=== PATIENT | female | born 1945 | race Caucasian/White ===

== ENCOUNTER 2017-02-28 16:06 | Observation (INO) ==
[2017-02-28] MEDS ORDERED: Aspirin 81 MG TAB.CHEW PO ONE (17:34)
--- NOTE | 2017-02-28 17:45 | Emergency Department Note ---
Disposition Clinical Impression: Exertional dyspnea, Weakness generalized CAD (coronary artery disease) Qualifiers: Coronary Disease-Associated Artery/Lesion type: [place] artery [place] vs. transplanted heart: [place] heart Associated angina: without angina Qualified Code(s): I25.10 - Atherosclerotic heart disease of [place] coronary artery without angina pectoris Hyperlipidemia Qualifiers: Hyperlipidemia type: unspecified Qualified Code(s): E78.5 - Hyperlipidemia, unspecified Disposition: Admitted As Inpatient SOB HPI - General Chief Complaint: ED Shortness of Breath/Dyspnea Stated Complaint: weak, SOB Source: patient, family Mode of arrival: wheelchair Limitations: no limitations Nursing Notes Reviewed: Yes Vital Signs Reviewed: Yes - History of Present Illness Patient is a 71-year-old white female with a history of reported asthma, diabetes, coronary artery disease, hypertension, hyperlipidemia chronic lower leg pain who presents to the emergency department brought by her daughter, with whom she resides, for complaints of gradually worsening dyspnea with exertion. Quite to the daughter she was brought into the emergency department for shortness of breath about a month ago. They felt she was having an exacerbation of her asthma at that time did breathing treatments and steroids and patient was discharged home with similar medications. Daughter feels that these just did not help with her symptoms and she is continued to have noticeable shortness of breath with any activity. Both patient and daughter state if she is at rest she is fine and she does not have any shortness of breath she is not coughing she has no fever chills no upper respiratory congestion or sore throat. Daughter reports that she has been evaluated in the past with stress testing that was normal but states it was remote and cannot remember the date and that it was done at [place]. Patient denies any chest pain, and no chest heaviness or pressure sensation when she gets short of breath. Patient's denies any abdominal pain no nausea vomiting, no diaphoresis. Patient's resting comfortably at bedside, with stable vitals pulse ox is 100% on room air and patient has no signs of respiratory distress. Patient also states that she is worried she may have a urinary tract infection and as of recent has started to use depends for occasional urinary incontinence. She denies any actual dysuria or polyuria and has not seen any blood in her urine. Patient denies any back pain or flank pain. - Related Data Home Medications Medication Instructions Recorded Confirmed Aspirin [Adult Low Dose Aspirin EC] 81 mg PO DAILY 10/12/15 02/28/17 Citalopram [CeleXA] 40 mg PO DAILY 10/12/15 02/28/17 LORazepam [Ativan] 1 mg PO QAM 10/12/15 02/28/17 Simvastatin [Zocor] 10 mg PO HS 10/12/15 02/28/17 Sitagliptin Phos/Metformin HCl 1 tab PO BID 10/12/15 02/28/17 [Janumet 50-500 mg Tablet] Albuterol Sulfate [Proair Hfa] 2 puff IH Q4H PRN 02/28/17 02/28/17 BuPROPion XL (24 HR) [Wellbutrin 150 mg PO DAILY 02/28/17 02/28/17 XL] Carbidopa/Levodopa [Sinemet 1 each PO BID 02/28/17 02/28/17] Donepezil [Aricept] 10 mg PO HS 02/28/17 02/28/17 Ferrous Sulfate 325 mg PO BIDWM 02/28/17 02/28/17 Fluticasone Propionate [Flovent 2 puff IH BID 02/28/17 02/28/17 Hfa] LORazepam [Ativan] 2 mg PO HS 02/28/17 02/28/17 Omeprazole [PriLOSEC] 40 mg PO DAILY 02/28/17 02/28/17 Allergies Allergy/AdvReac Type Severity Reaction Status Date / Time codeine Allergy Anaphylaxis Verified 02/28/17 16:12 Sulfa (Sulfonamide Allergy Hives Verified 02/28/17 16:12 Antibiotics) All systems ED: reviewed and negative except as stated. Constitutional: Reports: as per HPI, weakness. Denies: fever, chills Eyes: Reports: as per HPI ENT ED: Reports: as per HPI. Denies: congestion, dysphagia Cardiovascular: Reports: as per HPI, dyspnea on exertion. Denies: chest pain, palpitations, orthopnea, edema, syncope, paroxysmal nocturnal dyspnea Respiratory: Reports: as per HPI. Denies: cough, dyspnea, wheezes, sputum production Gastrointestinal: Reports: as per HPI. Denies: abdominal pain, nausea, vomiting , diarrhea Genitourinary: Reports: as per HPI. Denies: urgency, dysuria, frequency, hematuria Musculoskeletal: Reports: as per HPI, other (Patient complains of an exacerbation of chronic pain in the right lower extremity that is in the distribution of a large varicose vein that traverses from her medial right thigh around the medial aspect of the knee and diagonally across the lower leg.) . Denies: back pain, neck pain, myalgia Integumentary: Reports: as per HPI. Denies: rash Neurological: Reports: as per HPI. Denies: headache, weakness, numbness, paresthesias Psychiatric: Reports: as per HPI. Denies: anxiety, depression Endocrine: Reports: as per HPI. Denies: fatigue Hematological/Lymphatic: Reports: as per HPI Allergic/Immunologic: Reports: as per HPI Past Medical History - Past Medical History Medical history: Reports: asthma, coronary artery disease, diabetes, hyperlipidemia, hypertension, other Surgical history: Reports: angioplasty/stent, cataract, hysterectomy Psychiatric history: Reports: anxiety, depression [employer] history: Reports: other - Social History Smoking Status: Never smoker Smokeless Tobacco Status: No Alcohol use: Reports: none Drug use: Reports: none Physical Exam - General Limitations: no limitations General appearance: alert, in no apparent distress - Head Head exam: atraumatic, normocephalic, normal inspection - Eye Eye exam: Present: normal appearance, PERRL, EOMI - ENT ENT exam: normal exam, normal oropharynx, mucous membranes moist - Neck Neck exam: Present: normal inspection, full ROM - Chest Chest inspection: Present: normal inspection, symmetric chest wall rise. Absent : tenderness - Respiratory Respiratory exam: Present: normal lung sounds bilaterally. Absent: respiratory distress, wheezes - Cardiovascular Cardiovascular exam: Present: regular rate, normal rhythm, normal heart sounds - Abdominal Exam Abdominal exam: Present: soft, Non-Tender, normal bowel sounds. Absent: distention, guarding, rebound, rigidity - Rectal Exam Rectal exam: Present: deferred - Extremities Exam Extremities exam: Present: normal inspection, tenderness, normal capillary refill, other (Patient with tenderness to palpation along the distribution of a large varicose vein on her right lower extremity remainder of the leg, both joints and muscles are nontender with no edema). Absent: pedal edema - Back Exam Back exam: Present: normal inspection. Absent: CVA tenderness (R), CVA tenderness (L) - Neurological Exam Neurological exam: Present: alert, oriented X3, CN II-XII intact, reflexes normal. Absent: motor sensory deficit - Psychiatric Psychiatric exam: Present: normal affect, normal mood - Skin Skin exam: Present: warm, dry. Absent: rash, diaphoresis, pallor Course Vital Signs Temperature 98.1 F 02/28/17 16:08 Pulse Rate 78 02/28/17 16:08 Respiratory Rate 18 02/28/17 16:08 Blood Pressure 144/84 02/28/17 16:08 O2 Sat by Pulse Oximetry 98 02/28/17 16:08 Temperature 97.8 F 03/01/17 16:04 Pulse Rate 63 03/01/17 16:04 Respiratory Rate 20 03/01/17 16:04 Blood Pressure 136/74 03/01/17 16:04 O2 Sat by Pulse Oximetry 96 03/01/17 16:04 Oxygen Delivery Oxygen Delivery Room Air Shortness of Breath/Dyspnea - MDM Narrative Medical decision making narrative: Pt is a 71 yo wf who is brought to the ER by her daughter with concerns for gradually worsening exertional dyspnea. Pt was seen in the ER one month ago for SOB, and at that time was felt to be due to acute asthma exacerbation. Pt was DC 'd from the ED with aerosols and steroids. She has not been seen by her PCP since being DC'd from the ED, despite the family and pt reporting that "she just never really felt any better". Pt states she is unable to ambulate more than a few feet in her home, and she becomes so SOB, that she has to stop and rest. Pt unable to get around and care for herself due to this problem. Pt denies any CP/press, no diaphoresis, no other assocd sxs. EKG with no acute changes compared to previous. CXR clear. Labs including d- dmer and trop wnl. Lg leuks in urine, no nitrates, pt denies any urinary sxs, will await culture. Pt with extensive cardiac hx, so will admit for further eval /mgmt - Medical Records Medical records reviewed: Yes I reviewed the patient's medical records. - Lab Data Lab results reviewed: Yes I reviewed the patient's lab results. Result diagrams: 03/01/17 05:46 03/01/17 05:46 Lab Results 02/28/17 02/28/17 02/28/17 Range/Units 16:29 17:45 17:45 WBC 6.6 (4.3-11.1) K/mcL RBC 5.13 H (3.82-4.97) M/mcL Hgb 13.3 (11.5-15.4) g/dL Hct 39.5 (35.3-44.9) % MCV 77.0 L (83.0-100.0) fL MCH 25.9 L (28.0-33.3) pg MCHC 33.7 (31.6-35.5) g/dL RDW 12.9 (11.5-14.5) % Plt Count 283 (140-400) K/mcL MPV 9.7 (9.4-12.4) fL Immature Gran % 0.5 (0-4) % Seg Neutrophils % 66.1 % Lymphocytes % 21.8 % Monocytes % 10.1 % Eosinophils % 0.9 % Basophils % 0.6 % Neutrophils # 4.4 (1.6-8.9) K/mcL Lymphocytes # 1.4 (0.6-4.6) K/mcL Monocytes # 0.7 (0.0-1.3) K/mcL Eosinophils # 0.1 (0.0-0.6) K/mcL Basophils # 0.0 (0.0-0.2) K/mcL PT 12.4 H (9.4-12.1) Seconds INR 1.1 APTT 31.4 (26.0-36.0) Seconds D-Dimer 436 (0-500) ng/mLFEU Sodium (136-145) mEq/L Potassium (3.5-4.5) mEq/L Chloride (98-109) mEq/L Carbon Dioxide (19-29) mEq/L BUN (7-20) mg/dL Creatinine (0.57-1.11) mg/dL Est GFR ( Amer) (> 60) Est GFR (Non-Af Amer) (> 60) BUN/Creatinine Ratio (6-26) Glucose (70-99) mg/dL POC Glucose 95 H (58-89) Calculated Osmolality (280-300) Calcium (8.6-10.8) mg/dL Troponin I (0-0.03) ng/mL B-Natriuretic Peptide (0-100) pg/mL Urine Color (Yellow) Urine Clarity (Clear) Urine pH (5.0-8.0) pH Units Ur Specific [place] (1.010-1.025) Urine Protein (Neg-Trace) mg/dL Urine Glucose (UA) (Normal) mg/dL Urine Ketones (Negative) mg/dL Urine Blood (Negative) Urine Nitrite (Negative) Urine Bilirubin (Negative) Urine Urobilinogen (Normal) mg/dL Ur Leukocyte Esterase (Negative) Urine Microscopic RBC (0-3) per hpf Urine Microscopic WBC (0-3) per hpf Ur Squamous Epith Cells (None-Few) per lpf Urine Bacteria (None-Few) per hpf Hyaline Casts (None-Few) per lpf Ur Culture Indicated? (NO) 02/28/17 02/28/17 02/28/17 Range/Units 17:45 17:45 17:45 WBC (4.3-11.1) K/mcL RBC (3.82-4.97) M/mcL Hgb (11.5-15.4) g/dL Hct (35.3-44.9) % MCV (83.0-100.0) fL MCH (28.0-33.3) pg MCHC (31.6-35.5) g/dL RDW (11.5-14.5) % Plt Count (140-400) K/mcL MPV (9.4-12.4) fL Immature Gran % (0-4) % Seg Neutrophils % % Lymphocytes % % Monocytes % % Eosinophils % % Basophils % % Neutrophils # (1.6-8.9) K/mcL Lymphocytes # (0.6-4.6) K/mcL Monocytes # (0.0-1.3) K/mcL Eosinophils # (0.0-0.6) K/mcL Basophils # (0.0-0.2) K/mcL PT (9.4-12.1) Seconds INR APTT (26.0-36.0) Seconds D-Dimer (0-500) ng/mLFEU Sodium 142 (136-145) mEq/L Potassium 3.9 (3.5-4.5) mEq/L Chloride 110 H (98-109) mEq/L Carbon Dioxide 19 (19-29) mEq/L BUN 19 (7-20) mg/dL Creatinine 1.49 H (0.57-1.11) mg/dL Est GFR ( Amer) 42 L (> 60) Est GFR (Non-Af Amer) 34 L (> 60) BUN/Creatinine Ratio 13 (6-26) Glucose 94 (70-99) mg/dL POC Glucose (58-89) Calculated Osmolality 296 (280-300) Calcium 9.7 (8.6-10.8) mg/dL Troponin I 0.00 (0-0.03) ng/mL B-Natriuretic Peptide 17 (0-100) pg/mL Urine Color (Yellow) Urine Clarity (Clear) Urine pH (5.0-8.0) pH Units Ur Specific [place] (1.010-1.025) Urine Protein (Neg-Trace) mg/dL Urine Glucose (UA) (Normal) mg/dL Urine Ketones (Negative) mg/dL Urine Blood (Negative) Urine Nitrite (Negative) Urine Bilirubin (Negative) Urine Urobilinogen (Normal) mg/dL Ur Leukocyte Esterase (Negative) Urine Microscopic RBC (0-3) per hpf Urine Microscopic WBC (0-3) per hpf Ur Squamous Epith Cells (None-Few) per lpf Urine Bacteria (None-Few) per hpf Hyaline Casts (None-Few) per lpf Ur Culture Indicated? (NO) 02/28/17 Range/Units 18:50 WBC (4.3-11.1) K/mcL RBC (3.82-4.97) M/mcL Hgb (11.5-15.4) g/dL Hct (35.3-44.9) % MCV (83.0-100.0) fL MCH (28.0-33.3) pg MCHC (31.6-35.5) g/dL RDW (11.5-14.5) % Plt Count (140-400) K/mcL MPV (9.4-12.4) fL Immature Gran % (0-4) % Seg Neutrophils % % Lymphocytes % % Monocytes % % Eosinophils % % Basophils % % Neutrophils # (1.6-8.9) K/mcL Lymphocytes # (0.6-4.6) K/mcL Monocytes # (0.0-1.3) K/mcL Eosinophils # (0.0-0.6) K/mcL Basophils # (0.0-0.2) K/mcL PT (9.4-12.1) Seconds INR APTT (26.0-36.0) Seconds D-Dimer (0-500) ng/mLFEU Sodium (136-145) mEq/L Potassium (3.5-4.5) mEq/L Chloride (98-109) mEq/L Carbon Dioxide (19-29) mEq/L BUN (7-20) mg/dL Creatinine (0.57-1.11) mg/dL Est GFR ( Amer) (> 60) Est GFR (Non-Af Amer) (> 60) BUN/Creatinine Ratio (6-26) Glucose (70-99) mg/dL POC Glucose (58-89) Calculated Osmolality (280-300) Calcium (8.6-10.8) mg/dL Troponin I (0-0.03) ng/mL B-Natriuretic Peptide (0-100) pg/mL Urine Color Dark Yellow (Yellow) Urine Clarity Cloudy A (Clear) Urine pH 5.5 (5.0-8.0) pH Units Ur Specific [place] 1.029 H (1.010-1.025) Urine Protein Negative (Neg-Trace) mg/dL Urine Glucose (UA) Normal (Normal) mg/dL Urine Ketones Trace H (Negative) mg/dL Urine Blood Negative (Negative) Urine Nitrite Negative (Negative) Urine Bilirubin Small H (Negative) Urine Urobilinogen Normal (Normal) mg/dL Ur Leukocyte Esterase Large H (Negative) Urine Microscopic RBC 5-15 H (0-3) per hpf Urine Microscopic WBC 30-50 H (0-3) per hpf Ur Squamous Epith Cells Many H (None-Few) per lpf Urine Bacteria None Seen (None-Few) per hpf Hyaline Casts Moderate H (None-Few) per lpf Ur Culture Indicated? YES A (NO) - Radiology Data Radiology results reviewed: Yes I reviewed the patient's radiology results. - EKG Data EKG attestation: Yes I reviewed and interpreted this EKG. EKG results narrative: Patient's EKG shows a normal sinus rhythm at 70 bpm she does have some inverted T waves in the anterolateral leads, this is not a new finding and is also noted on an old EKG from January 312016 no acute changes today.
[2017-02-28 17:54] LABS: Basophils % 0.6 %; Eosinophils # 0.1 K/mcL (0.0-0.6); Eosinophils % 0.9 %; Hematocrit 39.5 % (35.3-44.9); Hemoglobin 13.3 g/dL (11.5-15.4); Immature Granulocytes % 0.5 % (0-4); Lymphocytes # 1.4 K/mcL (0.6-4.6); Lymphocytes % 21.8 %; Mean Corpuscular HGB Conc 33.7 g/dL (31.6-35.5); Mean Corpuscular Hemoglobin 25.9 pg (28.0-33.3); Mean Platelet Volume 9.7 fL (9.4-12.4); Monocytes # 0.7 K/mcL (0.0-1.3); Monocytes % 10.1 %; Neutrophils # 4.4 K/mcL (1.6-8.9); Platelet Count 283 K/mcL (140-400); Red Blood Count 5.13 M/mcL (3.82-4.97); Red Cell Distribution Width 12.9 % (11.5-14.5); Segmented Neutrophils % 66.1 %
[2017-02-28 18:07] LABS: Calcium 9.7 mg/dL (8.6-10.8); Potassium 3.9 mEq/L (3.5-4.5)
[2017-02-28 18:12] LABS: INR 1.1; Prothrombin Time 12.4 Seconds (9.4-12.1)
[2017-02-28 18:15] LABS: Activated Partial Thrombo Time 31.4 Seconds (26.0-36.0)
[2017-02-28] MEDS ORDERED: 0.9 % Sodium Chloride 1,000 ML IVC ONE (18:59)
[2017-02-28 19:04] LABS: Bilirubin,Urine Small (Negative); Blood,Urine Negative (Negative); Clarity,Urine Cloudy (Clear); Color,Urine Dark Yellow (Yellow); Glucose,Urine (UA) Normal (Normal); Ketones,Urine Trace mg/dL (Negative); Leukocyte Esterase,Urine Large (Negative); Nitrite,Urine Negative (Negative); PH,Urine 5.5 pH Units (5.0-8.0); Protein,Urine Negative (Neg-Trace); Specific Gravity,Urine 1.029 (1.010-1.025); Urobilinogen,Urine Normal (Normal)
[2017-02-28 19:06] LABS: Bacteria,Urine None Seen per hpf (None-Few); Hyaline Casts,Urine Moderate per lpf (None-Few); Squamous Epithelial Cell,Urine Many per lpf (None-Few); WBC,Urine 30-50 per hpf (0-3)
[2017-02-28] MEDS ORDERED: Acetaminophen 325 MG TABLET PO PRN (23:05)
[2017-02-28] MEDS ORDERED: Ondansetron 4 MG/2 ML VIAL IVP PRN (23:05)
[2017-02-28] MEDS ORDERED: Naloxone 0.4 MG/ML INJ IVP PRN (23:05)
[2017-02-28] MEDS ORDERED: Albuterol 2.5 MG/3 ML NEBULIZER IH PRN (23:10)
[2017-02-28] MEDS: 0.9 % Sodium Chloride 1,000 ML IVC SCH (23:51)
[2017-02-28] MEDS: *HR* LORazepam 1 MG TABLET PO SCH (23:51)
[2017-02-28] MEDS: Carbidopa/Levodopa 25/100 TABLET PO SCH (23:51)
--- NOTE | 2017-03-01 03:59 | Internal Med History&Physical ---
Date of Encounter: 02/28/17 Time of Encounter: 22:30 Assessment and Plan (1) Exertional dyspnea Current visit: Yes Status: Acute could be related to UTI and underlying asthma; less likely acute CHF as BNP is normal, chest XRay shows no effusion/pulmonary edema; Telemetry monitoring and serial Troponins; check 2D Echocardiogram for further assessment; continue bronchodilators; PT/OT evaluation; (2) UTI (urinary tract infection) Current visit: Yes Status: Acute could explain diaphoresis and malaise; Continue IV antibiotics and f/up urine culture; Qualifiers: Urinary tract infection type: site unspecified Hematuria presence: without hematuria Qualified Code(s): N39.0 - Urinary tract infection, site not specified (3) DONITA (acute kidney injury) Current visit: Yes Status: Acute serum creatinine noted to be worsening over the last 1-2 months; will give a trial of IV hydration; does not seem to be on nephrotoxic meds; no proteinuria on UA; (4) CAD (coronary artery disease) Current visit: Yes Status: Chronic Qualifiers: Coronary Disease-Associated Artery/Lesion type: [place] artery [place] vs. transplanted heart: [place] heart Associated angina: without angina Qualified Code(s): I25.10 - Atherosclerotic heart disease of [place] coronary artery without angina pectoris (5) Essential hypertension Current visit: Yes Status: Chronic BP well-controlled; resume home meds; (6) Hyperlipidemia Current visit: Yes Status: Chronic Qualifiers: Hyperlipidemia type: unspecified Qualified Code(s): E78.5 - Hyperlipidemia , unspecified (7) Asthma Current visit: Yes Status: Chronic no wheezing or hypoxia; not noted to be in acute exacerbation; continue PRN bronchodilators and inhaled steroids; Qualifiers: Asthma severity: mild intermittent Asthma complication type: uncomplicated Qualified Code(s): J45.20 - Mild intermittent asthma, uncomplicated (8) Anxiety Current visit: Yes Status: Chronic (9) Depression Current visit: Yes Status: Chronic Qualifiers: Depression Type: other depression Qualified Code(s): F32.89 - Other specified depressive episodes (10) Diabetes Current visit: Yes Status: Chronic Accucheck blood glucose monitoring with sliding scale insulin; diabetic diet. Qualifiers: Diabetes mellitus type: type 2 Diabetes mellitus complication status: with unspecified complications Diabetes mellitus intermediate project manager insulin use: without intermediate project manager use Qualified Code(s): E11.8 - Type 2 diabetes mellitus with unspecified complications Internal Medicine - H&P: HPI Chief complaint: Shortness of breath Admitted From: Emergency Dept Plans for Post Hospital Care: Home History of present illness: Ms. Goddard is a 71 year old female with multiple medical problems presents with c/o - shortness of breath. History is obtained from her family as she is tired and dyspneic to provide history. She has been doing well until yesterday when she started developing extreme dyspnea, worse with minimal exertion, associated with chills/diaphoresis and mild confusion. She also has been having productive cough with whitish yellow sputum since she has been diagnosed with asthma bout 3 -4 months ago. No chest pain, dizziness, syncope. Reports vague lower abdominal pain, no hematuria, dysuria or burning micturition. Past Med Surg Social Fam HX - Past Medical History Medical history: asthma, coronary artery disease, diabetes, hyperlipidemia, hypertension, other Psychiatric history: anxiety, depression - Past Surgical History Surgical History: angioplasty/stent, cataract, hysterectomy, other (vein stripping, cystocoele and rectocoele repair) - Social History Smoking Status: Never smoker Smokeless Tobacco Status: No Alcohol use: none Drug use: none Occupational status: retired Current living situation: Home, With Family Activity Level: Uses cane/walker Recent Out of Country Travel Within the Last 8 Weeks: No Exposure or Possible Exposure to Illness During Travel: No - Family History Mother Hx Family Endocrine Disorder: Yes (diabetes) Internal Medicine - H&P: Meds Aspirin [Adult Low Dose Aspirin EC] 81 mg PO DAILY 10/12/15 [History] Citalopram [CeleXA] 40 mg PO DAILY 10/12/15 [History] LORazepam [Ativan] 1 mg PO QAM 10/12/15 [History] Simvastatin [Zocor] 10 mg PO HS 10/12/15 [History] Sitagliptin Phos/Metformin HCl [Janumet 50-500 mg Tablet] 1 tab PO BID 10/12/15 [History] Albuterol Sulfate [Proair Hfa] 2 puff IH Q4H PRN 02/28/17 [History] BuPROPion XL (24 HR) [Wellbutrin XL] 150 mg PO DAILY 02/28/17 [History] Carbidopa/Levodopa 25/100 [Sinemet 25/100] 1 each PO BID 02/28/17 [History] Donepezil [Aricept] 10 mg PO HS 02/28/17 [History] Ferrous Sulfate 325 mg PO BIDWM 02/28/17 [History] Fluticasone Propionate [Flovent Hfa] 2 puff IH BID 02/28/17 [History] LORazepam [Ativan] 2 mg PO HS 02/28/17 [History] Omeprazole [PriLOSEC] 40 mg PO DAILY 02/28/17 [History] Allergies codeine Allergy (Verified 02/28/17 16:12) Anaphylaxis Sulfa (Sulfonamide Antibiotics) Allergy (Verified 02/28/17 16:12) Hives All Systems PM: A 10-system review of systems was performed and is negative for pertinent findings except as documented above in the HPI. - Constitutional Constitutional: chills, excessive sweating, malaise - EENT Eyes: no change in vision, no discharge, no pain, no photophobia Ears: no ear discharge, no ear pain, no tinnitus Nose, mouth and throat: no dysphagia, no nasal discharge, no neck pain, no sore throat - Cardiovascular Cardiovascular ROS IM: dyspnea, dyspnea on exertion, no chest pain, no diaphoresis, no lightheadedness, no palpitations, no syncope - Respiratory Respiratory: cough, no dyspnea, no wheezing, no excessive phlegm production - Gastrointestinal Gastrointestinal: abdominal pain - Genitourinary Genitourinary: no change in urinary stream, no dysuria, no flank pain, no hematuria - Musculoskeletal Musculoskeletal ROS IM: no numbness, no tingling - Integumentary Integumentary IM: no rash, no unusual bruising - Neurological Neurological ROS: no confusion, no convulsions, no focal weakness, no numbness, no tingling, no tremor(s) - Hematologic/Lymphatic Hematologic/Lymphatic: no easy bruising - Constitutional Vitals: Temp Pulse Resp BP Pulse Ox 98.0 F 64 15 105/56 97 03/01/17 03:18 03/01/17 03:18 03/01/17 03:18 03/01/17 03:18 03/01/17 03:18 General appearance: Present: A&O X 2, mild distress, answers questions appropriately - Respiratory Respiratory exam: Present: CTAB. Absent: accessory muscle use, rales, rhonchi, wheezes - Cardiovascular Cardiovascular exam: Present: RRR, +S1, +S2. Absent: diastolic murmur, gallop, rubs, systolic murmur - GI/Abdominal GI/Abdominal exam: Present: normal bowel sounds, soft, no peritoneal signs. Absent: distended, tenderness - Extremities Exam Extremities exam: Present: full ROM, warm, radial pulses palpable and symetrical. Absent: calf tenderness, cyanotic, pedal edema - Neurological Exam Neurological exam: Present: CN II-XII intact, oriented X3, no focal deficits. Absent: pronater drift, facial droop, speech deficit - Skin Skin exam: Present: dry, intact Internal Med - H&P Results - Labs CBC & Chem 7: 02/28/17 17:45 02/28/17 17:45 - EKG Data -: EKG Interpreted by Myself EKG shows normal: sinus rhythm, ST-T waves (TWI in anterior and lateral leads, old changes) Rate: normal - EKG Data Prior EKG available for review: yes When compared to previous EKG: there is no significant change
[2017-03-01 06:25] LABS: Calcium 8.3 mg/dL (8.6-10.8); Potassium 3.7 mEq/L (3.5-4.5)
[2017-03-01 06:50] LABS: Basophils % 0.5 %; Eosinophils # 0.1 K/mcL (0.0-0.6); Eosinophils % 1.8 %; Hematocrit 37.8 % (35.3-44.9); Hemoglobin 12.3 g/dL (11.5-15.4); Immature Granulocytes % 0.3 % (0-4); Lymphocytes # 1.9 K/mcL (0.6-4.6); Lymphocytes % 30.7 %; Mean Corpuscular HGB Conc 32.5 g/dL (31.6-35.5); Mean Corpuscular Hemoglobin 25.7 pg (28.0-33.3); Mean Corpuscular Volume 79.1 fL (83.0-100.0); Mean Platelet Volume 10.6 fL (9.4-12.4); Monocytes # 0.7 K/mcL (0.0-1.3); Monocytes % 11.3 %; Neutrophils # 3.4 K/mcL (1.6-8.9); Platelet Count 199 K/mcL (140-400); Red Blood Count 4.78 M/mcL (3.82-4.97); Red Cell Distribution Width 13.2 % (11.5-14.5); Segmented Neutrophils % 55.4 %
[2017-03-01] MEDS: Beclomethasone 80mcg MDI IH SCH ×2 (08:10→20:10)
[2017-03-01] MEDS: BuPROPion XL (24 HR) 150 MG TABLET PO SCH (08:17)
[2017-03-01] MEDS: Carbidopa/Levodopa 25/100 TABLET PO SCH ×2 (08:17→19:47)
[2017-03-01] MEDS: Aspirin Enteric Coated 81 MG Tablet PO SCH (08:17)
[2017-03-01] MEDS: *HR* LORazepam 1 MG TABLET PO SCH ×2 (08:17→19:47)
[2017-03-01] MEDS ORDERED: Carbidopa/Levodopa 25/100 TABLET PO SCH (09:00)
--- NOTE | 2017-03-01 12:51 | ECHO - Doppler Report ---
Echocardiogram Name: Shavonne Goddard Date of Study: 03/01/2017 Date: 1945 Ht: 62.0 in Medical Record#: [id number] Age: 71 Wt: 155.0 lb Gender: Female BSA: 1.72 Order #: [id number] [facility] Room #: [id number] Reading Physician: Constanza Dee DO Office Messenger: Iram Garg RDCS Ordering Physician: Symone Marcelo MD Primary Physician: Flores Hernández CNP Indications: Shortness of breath Impressions: LVEF 65%. Normal left ventricular size and systolic function. There is evidence of mild diastolic dysfunction of the left ventricle. Normal right ventricular size and function. Mild pulmonic regurgitation. No pulmonary hypertension. Left Ventricular Wall Motion: Rest Echo Findings All wall segments showed normal motion. Findings: Study Quality * Technically adequate exam. ECG Findings * Normal sinus rhythm. Left Ventricle * Normal LV chamber size, wall thickness and function. * Mild left ventricular diastolic dysfunction. * LVEF 65%. Aorta * Normally sized aortic root. Right Ventricle * Normal right ventricular structure and function. Left Atrium * Normal left atrial size. Mitral Valve * Normal mitral valve structure. * No mitral stenosis. * No mitral regurgitation. Aortic Valve * No aortic regurgitation. * Trileaflet aortic valve. * Normal aortic valve structure. * No aortic stenosis. Tricuspid Valve * Tricuspid valve not well visualized. * No tricuspid regurgitation. * Estimated RA pressure is 3 mmHg. Pulmonic Valve * Pulmonic valve is not well visualized. * No pulmonic stenosis. * Mild pulmonic regurgitation. Pulmonary Artery * Pulmonary artery not well visualized. Right Atrium * Normal right atrial size. Interatrial Septum * No evidence of PFO by color Doppler. IVC * Normal IVC dimensions and inspiratory collapse. Pericardium * There is no pericardial effusion present. History Hypertension Diabetes Hypercholesteremia History of CAD/PTCA 03/10/2012 a Previous Echo was performed. Measurements: BP: 105/ 56 2D Normal Values RVIDd: 3.40 cm <2.7 cm IVSd: 1.20 cm 0.6 - 1.0 cm LVIDd: 3.50 cm 3.7 - 5.6 cm LVPWd: 1.40 cm 0.6 - 1.1 cm LVIDs: 2.60 cm 1.5 - 3.6 cm AO: 2.10 cm < 4.0 cm LA: 3.30 cm 2.0 - 4.0cm %FS: 25.70 cm >25 % LA volume: 23 Mitral Valve Peak E:.65 m/sec Peak A:.70 m/sec E/A Ratio:0.9 Peak E' Lat Reji:6.63 cm/s Peak E' Med Reji:5.17 cm/s E/E' Lat Ratio:9.8 E/E' Med Ratio:12.6 Tricuspid Valve TV Regurg Peak Grad: 5.00mmHg TV Regurg Peak Reji: 1.15m/sec Updated by Constanza Dee on 03/01/2017 12:42:33 PM electronically signed on 03/01/2017 12:46:05 PM with status of Final Wall Motion [place]: 1=Normal, 2=Hypokinesis, 3=Akinesis, 4=Dyskinesis, 5=Aneurysmal, 6=Hyperkinetic, X=Not Visualized (Blank)=Missing
--- NOTE | 2017-03-01 14:02 | Electrocardiograph Report ---
[place] [id number] Test Date: 2017-02-28 Pat Name: Shavonne Goddard Department: 102 Room: 3B Gender: F [employer] Person: Steven : 1945 Requested By: Jackie Carmichael Order Number: [id number] Reading MD: Suresh Carlos MD Measurements Intervals [place] Rate: 70 P: 22 MN: 153 QRS: 0 QRSD: 85 T: 116 QT: 410 QTc: 431 Interpretive Statements SINUS RHYTHM ST DEVIATION AND MODERATE T-WAVE ABNORMALITY, CONSIDER ANTEROLATERAL ISCHEMIA Electronically Signed On 03-01-2017 14:01:33 EDT by Suresh Carlos MD
--- NOTE | 2017-03-01 18:07 | Internal Med Progress Note ---
Date of Encounter: 03/01/17 Time of Encounter: 16:00 - Assessment and plan (1) UTI (urinary tract infection) Current Visit: Yes Status: Acute Assessment and plan: Urine culture consistent with group B strep. Ceftriaxone stopped and Augmentin initiated. Only antibiotic allergy is to sulfa. Qualifiers: Urinary tract infection type: site unspecified Hematuria presence: without hematuria Qualified Code(s): N39.0 - Urinary tract infection, site not specified (2) Exertional dyspnea Current Visit: Yes Status: Acute Assessment and plan: Likely secondary to her urinary tract infection and initial dehydration. Echocardiogram revealing ejection fraction of 65% with mild diastolic dysfunction. Patient is slightly dehydrated/euvolemic on examination. No indication of heart failure at this time. Lungs are clear to auscultation bilaterally. She is on room air. Chest x-ray negative. We will observe overnight and likely discharged tomorrow pending clinical outcomes. ITS Impressions Chest X-Ray 02/28/17 17:33 IMPRESSION: No acute cardiopulmonary disease D/ / Virgil Prakash MD / Virgil Prakash MD Interpreting Provider: Virgil Prakash MD (3) CKD (chronic kidney disease) stage 3, GFR 30-59 ml/min Current Visit: Yes Status: Chronic Assessment and plan: Mild acute kidney injury upon presentation however improved overnight, will trend. (4) Dehydration Current Visit: No Status: Resolved (5) Diabetes Current Visit: Yes Status: Chronic Assessment and plan: No recent A1c, appears relatively well-controlled, will check A1c with a.m. labs. Continue sliding scale while admitted. Qualifiers: Diabetes mellitus type: type 2 Diabetes mellitus complication status: with unspecified complications Diabetes mellitus petroleum terminal plant operator insulin use: without [facility] use Qualified Code(s): E11.8 - Type 2 diabetes mellitus with unspecified complications (6) Weakness generalized Current Visit: Yes Status: Acute Assessment and plan: OT and PT and recommended ECF placement however insurance would not cover it given the patient's observation status. Private pay is not an option for this family. We will likely send home with home health. Likely discharge tomorrow pending clinical outcomes. (7) CAD (coronary artery disease) Current Visit: Yes Status: Chronic Assessment and plan: Patient denies chest pain. Qualifiers: Coronary Disease-Associated Artery/Lesion type: [place] artery [place] vs. transplanted heart: [place] heart Associated angina: without angina Qualified Code(s): I25.10 - Atherosclerotic heart disease of [place] coronary artery without angina pectoris (8) Essential hypertension Current Visit: Yes Status: Chronic Assessment and plan: Controlled without the use of antihypertensive medications, we will continue to trend (9) Asthma Current Visit: Yes Status: Chronic Assessment and plan: No acute exacerbation. Lungs clear to auscultation bilaterally with good aeration. Qualifiers: Asthma severity: mild intermittent Asthma complication type: uncomplicated Qualified Code(s): J45.20 - Mild intermittent asthma, uncomplicated (10) Anxiety Current Visit: Yes Status: Chronic (11) Depression Current Visit: Yes Status: Chronic Qualifiers: Depression Type: other depression Qualified Code(s): F32.89 - Other specified depressive episodes - Subjective Interval history: Patient seen and examined. On examination, patient resting in bed conversing with her daughter. She states she is feeling better but not quite back to her baseline. Her shortness of breath has improved. She states she is eating well. She denies dysuria. - Constitutional Vitals: Temp Pulse Resp BP Pulse Ox 97.8 F 63 20 136/74 96 03/01/17 16:04 03/01/17 16:04 03/01/17 16:04 03/01/17 16:04 03/01/17 16:04 General appearance: Present: A&O X 2, pleasant, no acute distress, answers questions appropriately - Head Head exam: Present: atraumatic, normocephalic - Eye Eye exam: Present: PERRL, conjuntiva pink, sclera anicteric Pupils: Present: PERRL - Neck Neck exam general surgery: Present: supple, trachea midline. Absent: lymphadenopathy - Respiratory Respiratory exam: Present: CTAB. Absent: accessory muscle use, rales, respiratory distress, rhonchi, wheezes - Cardiovascular Cardiovascular exam: Present: RRR, +S1, +S2. Absent: diastolic murmur, gallop, rubs, systolic murmur - GI/Abdominal GI/Abdominal exam: Present: normal bowel sounds, soft, no peritoneal signs. Absent: distended, tenderness - Extremities Exam Extremities exam: Present: warm, radial pulses palpable and symetrical. Absent : calf tenderness, cyanotic, pedal edema - Neurological Exam Neurological exam: Present: alert, CN II-XII intact, no focal deficits, strengths equal and symetr throughout. Absent: pronater drift, facial droop, speech deficit - Skin Skin exam: Present: dry, intact, pallor, warm Internal Medicine: Result - Labs CBC & Chem 7: 03/01/17 05:46 03/01/17 05:46 Labs: Short CBC 03/01/17 Range/Units 05:46 WBC 6.1 (4.3-11.1) K/mcL Hgb 12.3 (11.5-15.4) g/dL Hct 37.8 (35.3-44.9) % Plt Count 199 (140-400) K/mcL Neutrophils # 3.4 (1.6-8.9) K/mcL BMP 03/01/17 05:46 Sodium 141 Potassium 3.7 Chloride 111 H Carbon Dioxide 20 BUN 16 Creatinine 1.16 H Glucose 106 H Calcium 8.3 L Cardiac Enzymes 03/01/17 03/01/17 03/01/17 Range/Units 01:12 05:46 13:18 Troponin I 0.00 0.00 0.00 (0-0.03) ng/mL - ABG Interpretation ABG results: PT/INR, D-dimer PT 12.4 Seconds (9.4-12.1) H 02/28/17 17:45 D-Dimer 436 ng/mLFEU (0-500) 02/28/17 17:45 Consult Discharge Plan - Plan Referrals: Flores Hernández CNP [Primary Care Provider] -
[2017-03-01] MEDS: 0.9 % Sodium Chloride 1,000 ML IVC SCH (18:14)
[2017-03-01] MEDS: Amoxicillin/Clavulanate 500 MG TABLET PO SCH (19:47)
[2017-03-01] MEDS ORDERED: *HR* LORazepam 1 MG TABLET PO SCH (21:00)
[2017-03-02 04:55] LABS: Hemoglobin A1C 5.3 %
[2017-03-02 04:58] LABS: BUN/Creatinine Ratio 12 (6-26); Blood Urea Nitrogen 12 mg/dL (7-20); Calcium 8.3 mg/dL (8.6-10.8); Carbon Dioxide 21 mEq/L (19-29); Chloride 111 mEq/L (98-109); Glucose 100 mg/dL (70-99); Osmolality,Calculated 292 (280-300); Potassium 3.9 mEq/L (3.5-4.5); Sodium 141 mEq/L (136-145); eGFR For African Americans > 60 (> 60); eGFR For Non-African Americans 56 (> 60)
[2017-03-02] MEDS: 0.9 % Sodium Chloride 1,000 ML IVC SCH ×2 (05:08→06:01)
[2017-03-02] MEDS: Aspirin Enteric Coated 81 MG Tablet PO SCH (09:11)
[2017-03-02] MEDS: BuPROPion XL (24 HR) 150 MG TABLET PO SCH (09:12)
[2017-03-02] MEDS: Amoxicillin/Clavulanate 500 MG TABLET PO SCH (09:12)
[2017-03-02] MEDS: *HR* LORazepam 1 MG TABLET PO SCH (09:13)
[2017-03-02] MEDS: Carbidopa/Levodopa 25/100 TABLET PO SCH (09:13)
[2017-03-02] MEDS: Beclomethasone 80mcg MDI IH SCH (11:14)
--- NOTE | 2017-03-02 13:15 | Discharge Summary ---
Date of Encounter: 03/02/17 Time of Encounter: 10:30 - Discharge Diagnosis (1) UTI (urinary tract infection) Priority: Primary Status: Acute Comments: Urine culture consistent with group B strep. Ceftriaxone stopped and Augmentin initiated. Only antibiotic allergy is to sulfa. Qualifiers: Urinary tract infection type: site unspecified Hematuria presence: without hematuria Qualified Code(s): N39.0 - Urinary tract infection, site not specified (2) Exertional dyspnea Priority: Primary Status: Acute Comments: Likely secondary to her urinary tract infection and initial dehydration. Echocardiogram revealing ejection fraction of 65% with mild diastolic dysfunction. Patient euvolemic on examination on day of discharge. No indication of heart failure at this time. Lungs are clear to auscultation bilaterally. She was on room air throughout this admission. Chest x-ray negative. (3) CKD (chronic kidney disease) stage 3, GFR 30-59 ml/min Priority: Secondary Status: Chronic Comments: Mild acute kidney injury upon presentation however resolved. Creat normal on day of discharge (4) Dehydration Priority: Primary Status: Resolved (5) Diabetes Priority: Secondary Status: Chronic Comments: Controlled with an A1c of 5.3%. 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 Private pay is not an option for this family. Sending home with home health. (7) CAD (coronary artery disease) Priority: Secondary Status: Chronic Comments: Patient denied chest pain throughout this admission Qualifiers: Coronary Disease-Associated Artery/Lesion type: [place] artery [place] vs. transplanted heart: [place] heart Associated angina: without angina Qualified Code(s): I25.10 - Atherosclerotic heart disease of [place] coronary artery without angina pectoris (8) Essential hypertension Priority: Secondary Status: Chronic Comments: Controlled without the use of antihypertensive medications, followup outpatient (9) Asthma Priority: Secondary Status: Chronic Comments: No acute exacerbation. Lungs clear to auscultation bilaterally while admitted. Qualifiers: Asthma severity: mild intermittent Asthma complication type: uncomplicated Qualified Code(s): J45.20 - Mild intermittent asthma, uncomplicated (10) Anxiety Priority: Secondary Status: Chronic (11) Depression Priority: Secondary Status: Chronic Qualifiers: Depression Type: other depression Qualified Code(s): F32.89 - Other specified depressive episodes (12) Unintentional weight loss Priority: Primary Status: Acute Comments: Patient and family state that she has lost approximately 40 pounds since the beginning of this year. She lost her of 56 years in August and is clearly still grieving. Recommended outpatient counseling. She denies suicidal ideations. - Discharge Medications Prescriptions: Amoxicillin/Clavulanate [Augmentin] 500 mg PO BIDWM #12 tablet Home Medications: Aspirin [Adult Low Dose Aspirin EC] 81 mg PO DAILY 10/12/15 [History] Citalopram [CeleXA] 40 mg PO DAILY 10/12/15 [History] LORazepam [Ativan] 1 mg PO QAM 10/12/15 [History] Simvastatin [Zocor] 10 mg PO HS 10/12/15 [History] Sitagliptin Phos/Metformin HCl [Janumet 50-500 mg Tablet] 1 tab PO BID 10/12/15 [History] Albuterol Sulfate [Proair Hfa] 2 puff IH Q4H PRN 02/28/17 [History] BuPROPion XL (24 HR) [Wellbutrin Xl] 150 mg PO DAILY 02/28/17 [History] Carbidopa/Levodopa 25/100 [Sinemet 25/100] 1 each PO BID 02/28/17 [History] Donepezil [Aricept] 10 mg PO HS 02/28/17 [History] Ferrous Sulfate 325 mg PO BIDWM 02/28/17 [History] Fluticasone Propionate [Flovent Hfa] 2 puff IH BID 02/28/17 [History] LORazepam [Ativan] 2 mg PO HS 02/28/17 [History] Omeprazole [PriLOSEC] 40 mg PO DAILY 02/28/17 [History] Amoxicillin/Clavulanate [Augmentin] 500 mg PO BIDWM #12 tablet 03/02/17 [Rx] Allergies/Adverse Reactions: Allergies codeine Allergy (Verified 02/28/17 16:12) Anaphylaxis Sulfa (Sulfonamide Antibiotics) Allergy (Verified 02/28/17 16:12) Hives Procedures/tests Complete & Pending: Procedures Performed prior 72 hours Category Date Time Status EV echocardiogram Routine Y 03/01/17 11:34 Completed Date of admission: 02/28/17 20:25 Primary care physician: Flores Heránndez CNP Consults: 02/28/17 23:07 Consult to Occupational Therapy [CONS] Routine Comment: Evaluate, develop and implement POC Reason for Consult: Generalized weakness, deconditioning Consult to Physical Therapy [CONS] Routine Comment: Evaluate, develop and implement POC Reason for Consult: Generalized weakness, deconditioning 03/02/17 09:17 Consult to Cleat Maker [CONS] Routine Reason for SW Consult: following. ecf vs hh Discharging clinician: Tere Cavanaugh Anticipated date of discharge: 03/02/17 (home with HH; ins would not cover ECF) - Patient Status Disposition: Home Health Service Condition: Fair Functional capacity at discharge: uses cane/walker Overall status at discharge: patient is progressing back to baseline - Discharge Instructions Follow Up With: Flores Hernández CNP [Primary Care Provider] - 03/07/17 2:05 pm Forms: ED Satisfaction Letter Additional Instructions: Follow-up with primary care provider as scheduled - Diet and Activity Activity: as per physical therapy, increase activity as tolerated Diet: diabetic diet, low fat, low cholesterol, low salt diet Hospital course: Ms. Goddard is a 71 year old female with past medical history of asthma, CAD status post stent, diabetes, hyperlipidemia, hypertension, anxiety/depression. Patient presented to the emergency department chief complaint shortness of breath. Patient had been doing well up until the day prior to presentation when she developed extreme dyspnea that was worsened with minimal exertion and associated with chills and diaphoresis as well as mild confusion. Patient also endorses a productive cough since she was diagnosed with asthma approximately 3- 4 months prior to presentation. She denied chest pain, dizziness, syncope. Workup in the emergency department revealing abnormal urinalysis and mild dehydration. Patient was admitted to the hospitalist service for further evaluation and management. Chest x-ray negative. She was treated with IV fluids and ceftriaxone and her symptoms improved. Urine culture consistent with group B strep and she was changed over to Augmentin. She had an echocardiogram that was unremarkable with ejection fraction of 65% with mild diastolic dysfunction. There were no signs of fluid overload or acute heart failure during this admission. She was on room air throughout this admission. Her lungs clear to auscultation bilaterally with no acute exacerbation of her asthma. Her blood pressure was controlled without the use of antihypertensive medications. She was seen and evaluated by occupational and physical therapy both of whom recommended ECF placement. Her insurance however would not cover this placement and private pay was not an option so the patient was set up with home health services. She has a lot of family support. Patient and family also states that the patient has lost 40 pounds over the beginning of the year. She lost her of 56 years in August and has been struggling and has lost her appetite since that time. She denies any suicidal ideations. Recommend outpatient grief counseling. She was discharged home in stable condition with close outpatient follow-up recommended. ITS Impressions Chest X-Ray 02/28/17 17:33 IMPRESSION: No acute cardiopulmonary disease D/ / Virgil Prakash MD / Virgil Prakash MD Interpreting Provider: Vigril Prakash MD Echocardiogram impressions: LVEF 65%. Normal left ventricular size and systolic function. There is evidence of mild diastolic dysfunction of the left ventricle. Normal right ventricular size and function. Mild pulmonic regurgitation. No pulmonary hypertension. - Time Spent with Patient Total time spent providing and/or coordinating discharge services: - Constitutional Vitals: Temp Pulse Resp BP Pulse Ox 97.6 F 69 18 104/59 98 03/02/17 10:49 03/02/17 10:49 03/02/17 11:14 03/02/17 10:49 03/02/17 11:14 General appearance: Present: A&O X 2, pleasant, no acute distress, answers questions appropriately - Head Head exam: Present: atraumatic, normocephalic - Eye Eye exam: Present: PERRL, conjuntiva pink, sclera anicteric Pupils: Present: PERRL - Neck Neck exam general surgery: Present: supple, trachea midline. Absent: lymphadenopathy - Respiratory Respiratory exam: Present: CTAB. Absent: accessory muscle use, rales, respiratory distress, rhonchi, wheezes - Cardiovascular Cardiovascular exam: Present: RRR, +S1, +S2. Absent: diastolic murmur, gallop, rubs, systolic murmur - GI/Abdominal GI/Abdominal exam: Present: normal bowel sounds, soft, no peritoneal signs. Absent: distended, tenderness - Extremities Exam Extremities exam: Present: warm, radial pulses palpable and symetrical. Absent : calf tenderness, cyanotic, pedal edema - Neurological Exam Neurological exam: Present: alert, CN II-XII intact, oriented X3, no focal deficits, strengths equal and symetr throughout. Absent: pronater drift, facial droop, speech deficit - Skin Skin exam: Present: dry, intact, pallor, warm
--- NOTE | 2017-03-02 13:27 | Physician Discharge Referral ---
Home Health/Hosp Referral Info Transfer to: Home Health Attending Provider: Adonis Cavanaugh CNP Provider in Charge Post Discharge: PCP - Diagnosis (1) UTI (urinary tract infection) Priority: Primary Status: Acute (2) Exertional dyspnea Priority: Primary Status: Acute (3) CKD (chronic kidney disease) stage 3, GFR 30-59 ml/min Priority: Secondary Status: Chronic (4) Dehydration Priority: Primary Status: Resolved (5) Diabetes Priority: Secondary Status: Chronic (6) Weakness generalized Priority: Primary Status: Acute (7) CAD (coronary artery disease) Priority: Secondary Status: Chronic (8) Essential hypertension Priority: Secondary Status: Chronic (9) Asthma Priority: Secondary Status: Chronic (10) Anxiety Priority: Secondary Status: Chronic (11) Depression Priority: Secondary Status: Chronic (12) Unintentional weight loss Priority: Primary Status: Acute - Respiratory Orders Smoking Cessation: Smoking cessation has been advised. For more information, call the [place] Tobacco Quit Line at 7-213-ZQWR-NOW. - Diet/Nutrition Diet/Nutrition Orders: No Added Salt (SOPHY), No Concentrated Sweets - Activity Activity Orders: Ambulate (per PT) - Services Needed Following services are medically necessary services: Nursing, Home Health Aide, Physical Therapy, Occupational Therapy - Transfer Medications Prescriptions: Amoxicillin/Clavulanate [Augmentin] 500 mg PO BIDWM #12 tablet Home Medications: Aspirin [Adult Low Dose Aspirin EC] 81 mg PO DAILY 10/12/15 [History] Citalopram [CeleXA] 40 mg PO DAILY 10/12/15 [History] LORazepam [Ativan] 1 mg PO QAM 10/12/15 [History] Simvastatin [Zocor] 10 mg PO HS 10/12/15 [History] Sitagliptin Phos/Metformin HCl [Janumet 50-500 mg Tablet] 1 tab PO BID 10/12/15 [History] Albuterol Sulfate [Proair Hfa] 2 puff IH Q4H PRN 02/28/17 [History] BuPROPion XL (24 HR) [Wellbutrin Xl] 150 mg PO DAILY 02/28/17 [History] Carbidopa/Levodopa 25/100 [Sinemet 25/100] 1 each PO BID 02/28/17 [History] Donepezil [Aricept] 10 mg PO HS 02/28/17 [History] Ferrous Sulfate 325 mg PO BIDWM 02/28/17 [History] Fluticasone Propionate [Flovent Hfa] 2 puff IH BID 02/28/17 [History] LORazepam [Ativan] 2 mg PO HS 02/28/17 [History] Omeprazole [PriLOSEC] 40 mg PO DAILY 02/28/17 [History] Amoxicillin/Clavulanate [Augmentin] 500 mg PO BIDWM #12 tablet 03/02/17 [Rx] Allergies/Adverse Reactions: Allergies codeine Allergy (Verified 02/28/17 16:12) Anaphylaxis Sulfa (Sulfonamide Antibiotics) Allergy (Verified 02/28/17 16:12) Hives Certification: Further, I certify that my clinical findings support that this patient is homebound (i.e. absences from home require considerable and taxing effort and are for medical reasons or [employer] services or infrequently or short duration when for other reasons) because: Homebound Reason: Patient requires assistance of a person or device to safely leave home, Leaving home requires considerable and taxing effort due to condition Attestation: My signature below is to certify that this patient is under my care and that I, or nurse practitioner, or a physician's speech language pathology assistant working with me, has a face-to -face encounter with this patient.
[2017-03-02 15:11] VITALS: BP 154/80
== END 2017-03-02 16:20 | disposition home health service (06) ==
LOC: EMEROO 16:06 → 3BNU 16:06
PROVIDERS: ADMIT Nurse Practitioner Family; ATTEND Nurse Practitioner Family

== ENCOUNTER 2017-07-23 11:02 | Observation (INO) ==
[2017-07-23] MEDS ORDERED: methylPREDNISolone 125 MG/2 ML VIAL IVP ONE (15:06)
[2017-07-23] MEDS ORDERED: Ipratropium/Albuterol Neb 3 ML IH ONE (15:06)
[2017-07-23 15:22] LABS: Basophils # 0.1 K/mcL (0.0-0.2); Basophils % 0.8 %; Eosinophils # 0.3 K/mcL (0.0-0.6); Eosinophils % 3.6 %; Hematocrit 34.8 % (35.3-44.9); Hemoglobin 11.7 g/dL (11.5-15.4); Immature Granulocytes % 0.1 % (0-4); Lymphocytes # 2.7 K/mcL (0.6-4.6); Lymphocytes % 37.8 %; Mean Corpuscular HGB Conc 33.6 g/dL (31.6-35.5); Mean Corpuscular Hemoglobin 27.3 pg (28.0-33.3); Mean Corpuscular Volume 81.3 fL (83.0-100.0); Mean Platelet Volume 9.6 fL (9.4-12.4); Monocytes # 0.7 K/mcL (0.0-1.3); Monocytes % 9.8 %; Neutrophils # 3.4 K/mcL (1.6-8.9); Platelet Count 253 K/mcL (140-400); Red Blood Count 4.28 M/mcL (3.82-4.97); Red Cell Distribution Width 13.7 % (11.5-14.5); Segmented Neutrophils % 47.9 %
[2017-07-23 15:35] LABS: Prothrombin Time 10.4 Seconds (9.4-12.1)
[2017-07-23 15:36] LABS: Alanine Aminotransferase 12 Units/L (0-55); Albumin 3.4 g/dL (3.5-5.0); Albumin/Globulin Ratio 1.1 (1.1-2.2); Alkaline Phosphatase 57 Units/L (38-126); Aspartate Amino Transferase 16 Units/L (5-34); BUN/Creatinine Ratio 18 (6-26); Bilirubin,Direct 0.1 mg/dL (0.0-0.5); Bilirubin,Indirect 0.1 mg/dL (0.0-1.2); Bilirubin,Total 0.2 mg/dL (0.2-1.2); Blood Urea Nitrogen 15 mg/dL (7-20); Calcium 8.8 mg/dL (8.6-10.8); Carbon Dioxide 24 mEq/L (19-29); Chloride 110 mEq/L (98-109); Globulin 3.2 g/dL (2.4-3.5); Glucose 121 mg/dL (70-99); Osmolality,Calculated 298 (280-300); Potassium 3.3 mEq/L (3.5-4.5); Sodium 143 mEq/L (136-145); Total Protein 6.6 g/dL (6.0-8.3); eGFR For African Americans > 60 (> 60); eGFR For Non-African Americans > 60 (> 60)
[2017-07-23 15:38] LABS: Activated Partial Thrombo Time 27.6 Seconds (26.0-36.0)
--- NOTE | 2017-07-23 16:36 | Emergency Department Note ---
Disposition Clinical Impression: Cough, Hiatal hernia, Essential hypertension, Elevated brain natriuretic peptide (BNP) level Acid reflux Qualifiers: Esophagitis presence: without esophagitis Qualified Code(s): K21.9 - Gastro- esophageal reflux disease without esophagitis Disposition: Admitted As Inpatient Condition: Good Reasons to Return/Additional Instructions: Please follow closely with your primary care provider. Please take all medications as they are prescribed. If you are concerned about your medical condition or if your symptoms change please return immediately to the emergency room for repeat evaluation. Please follow the return precautions that were discussed in great detail here in the emergency room prior to you being discharged home. Please take all of your home medications as they are prescribed. Referrals: Flores Hernández CNP [Primary Care Provider] - Forms: ED Satisfaction Letter Time of Disposition: 18:46 General Adult HPI - General Chief complaint: ED Shortness of Breath/Dyspnea Stated complaint: cough/fever Time Seen by Provider: 07/23/17 14:34 Source: patient Mode of arrival: ambulatory Limitations: no limitations Nursing Notes Reviewed: Yes Vital Signs Reviewed: Yes - History of Present Illness HPI Narrative: Patient presents to emergency room with complaint of cough. She has been seen several times over the last 3 weeks has had a persistent cough. She does have productive sputum as well as fever and chills at home. Denies any trauma or injuries. Has no chest pain or shortness of breath. Denies any headache or vision change. Denies any nausea vomiting or diarrhea. Patient denies any other specific medical history but she does have this persistent cough at this time. Onset (ago): week(s) Location: chest Radiation: non-radiation Pain Severity: moderate Pain Scale: 6 Quality: aching Consistency: constant Improves with: nothing Worsens with: nothing Associated symptoms: Reports: cough, fever/chills, loss of appetite Treatments Prior to Arrival: none - Related Data Home Medications Medication Instructions Recorded Confirmed Aspirin [Adult Low Dose Aspirin EC] 81 mg PO DAILY 10/12/15 02/28/17 Citalopram [CeleXA] 40 mg PO DAILY 10/12/15 02/28/17 LORazepam [Ativan] 1 mg PO QAM 10/12/15 02/28/17 Simvastatin [Zocor] 10 mg PO HS 10/12/15 02/28/17 Sitagliptin Phos/Metformin HCl 1 tab PO BID 10/12/15 02/28/17 [Janumet 50-500 mg Tablet] Albuterol Sulfate [Proair Hfa] 2 puff IH Q4H PRN 02/28/17 02/28/17 BuPROPion XL (24 HR) [Wellbutrin 150 mg PO DAILY 02/28/17 02/28/17 Xl] Carbidopa/Levodopa 25 [Sinemet 1 each PO BID 02/28/17 02/28/17 25] Donepezil [Aricept] 10 mg PO HS 02/28/17 02/28/17 Ferrous Sulfate 325 mg PO BIDWM 02/28/17 02/28/17 Fluticasone Propionate [Flovent 2 puff IH BID 02/28/17 02/28/17 Hfa] LORazepam [Ativan] 2 mg PO HS 02/28/17 02/28/17 Omeprazole [PriLOSEC] 40 mg PO DAILY 02/28/17 02/28/17 Previous Rx's Medication Instructions Recorded Amoxicillin/Clavulanate [Augmentin] 500 mg PO BIDWM #12 tablet 03/02/17 Benzonatate [Tessalon] 200 mg PO TID PRN #30 capsule 07/01/17 GuaiFENesin ER [Mucinex] 1,200 mg PO BID #20 tbbp.12hr 07/01/17 cephALEXin [Keflex] 500 mg PO QID #40 capsule 07/01/17 Allergies Allergy/AdvReac Type Severity Reaction Status Date / Time codeine Allergy Anaphylaxis Verified 02/28/17 16:12 Sulfa (Sulfonamide Allergy Hives Verified 02/28/17 16:12 Antibiotics) All systems ED: reviewed and negative except as stated. Review of Systems: As Per HPI Constitutional: Reports: fever, chills. Denies: weakness Cardiovascular: Reports: dyspnea on exertion. Denies: chest pain, palpitations , orthopnea, edema Respiratory: Reports: cough. Denies: dyspnea, wheezes, hemoptysis Gastrointestinal: Denies: abdominal pain, nausea, vomiting, diarrhea Genitourinary: Denies: urgency, dysuria Musculoskeletal: Denies: back pain, neck pain Neurological: Denies: headache Endocrine: Denies: fatigue Past Medical History - Past Medical History Attestation: Yes The following information was validated with the patient. Source: patient Medical history: Reports: asthma, coronary artery disease, diabetes, hyperlipidemia, hypertension, other Surgical history: Reports: angioplasty/stent, cataract, hysterectomy Psychiatric history: Reports: anxiety, depression HURL SHAKER history: Reports: other - Social History Smoking Status: Never smoker Smokeless Tobacco Status: No Alcohol use: Reports: none Drug use: Reports: none Physical Exam - General Limitations: no limitations General appearance: alert, in no apparent distress - ENT ENT exam: normal exam, normal oropharynx, mucous membranes moist - Neck Neck exam: Present: normal inspection, full ROM, trachea midline - Chest Chest inspection: Present: normal inspection, symmetric chest wall rise. Absent : tenderness - Respiratory Respiratory exam: Present: normal lung sounds bilaterally. Absent: respiratory distress, wheezes, stridor, accessory muscle use - Cardiovascular Cardiovascular exam: Present: regular rate, normal rhythm, normal heart sounds - Abdominal Exam Abdominal exam: Present: soft, Non-Tender, normal bowel sounds. Absent: tenderness, distention, guarding, rebound, rigidity - Extremities Exam Extremities exam: Present: normal inspection - Back Exam Back exam: Present: normal inspection, full ROM. Absent: tenderness - Neurological Exam Neurological exam: Present: alert, oriented X3, CN II-XII intact, normal gait - Skin Skin exam: Present: warm, dry, intact, normal color Course Course Narrative: Patient seen and examined the time of arrival. See history of present illness. 72-year-old female presents to emergency room with complaint of persistent cough. She has had this cough approximately 3-1/2 weeks. Denies any pulmonary related history illnesses. No history of COPD emphysema or asthma. Patient has completed antibiotic regimen without any change in her symptoms at this time. Patient is alert she is oriented she is be simple sentences. She does have a dry hacking cough on presentation. She is not currently taking any KULDIP inhibitor is. Vital signs are reviewed and otherwise unremarkable. She is hypertensive but does not show any acute issue at this time. Patient is stable and in no distress. Lungs are clear with no signs of coarse breath sounds are consolidation. Heart is regular abdomen is soft nontender nondistended. Patient does not have any focal findings on evaluation at this point. EKG chest x-ray and labs will be ordered and reviewed. Patient has an EKG completed in triage from 02/28/17 is reviewed and compared EKG performed today that shows diffuse T-wave inversions that appears to be chronic. There is no acute signs of ST segment elevation or myocardial infarction. This intervals are unremarkable. Patient's chest x-ray and labs in (inaudible this time. We will continue hydration course is completed. Patient denies any chest pain or other symptoms at this time - Reevaluation(s) Reevaluation #1: Patient's chest x-ray is negative and labs are otherwise unremarkable. CT of the chest of this time to look for any underlying interstitial disease. Vital signs remained stable to the course of care. Breathing is better after breathing treatments and steroids at this time. Patient has hacking up mucus at this point. Disposition pending this workup and treatment course. Time: 16:44 Reevaluation #2: CT angiography of the chest is negative for acute pulmonary infiltrate or pulmonary emboli. Patient does have thickening to the esophagus distally consistent with hiatal hernia and acid reflux. Patient has had a persistent cough over several weeks of unknown etiology except for possible irritation to the trachea as well as possible acid reflux. Patient is difficult to differentiate between sour taste in her mouth with a chronic cough. Patient otherwise is in no symptoms issues here. She was persistently hypertensive at this time. We will order single dose of Toprol here by IV. Patient takes metoprolol home but has not been taking her medications for several months because it said it made her feel funny. Patient needs to follow-up with her primary care provider considering she has been noncompliant with multiple medications and his chronic medical issues that need to be addressed. Patient also had a slightly elevated BNP with no focal signs of acute pulmonary edema or fluid overload. She has not had any signs of hypoxia conversational dyspnea at this point. Patient will be recommended WITH PCP. We discussed this and discuss possibility of admission the patient does not want to have this done at this time. Patient's cough has been controlled here which is breathing treatments at this point. Close follow-up and definitive management to be completed as an outpatient per the patient's request Clinically there is no acute findings concerning for potential critical illness. She is stable presentation this time and no acute abnormalities during this treatment course. Patient is otherwise stable and in no distress. Expected bili discharge home once treatment course is completed. Time: 17:48 Reevaluation #3: Patient has had persistently elevated hypertension here nonresponsive the small boluses of metoprolol. Patient will repeat bolus and overall and admission process will be completed secondary to the poor outpatient management of her medications and elevated BNP of persisting cough. Discusses with the family. Patient is otherwise stable. Time: 18:22 Additional Reevaluation(s): Patient discussed with Dr. Wilcox. No other recommendations at this time. Patient is otherwise stable. Will be admitted for hypertension and elevated BNP. Patient is not the most reliable historian and the family is not the best to manage her medications. Patient is medical evaluation and management in the hospital. Blood pressure is down to 191/85 at this time. Vital Signs Temperature 98.1 F 07/23/17 11:35 Pulse Rate 65 07/23/17 11:35 Respiratory Rate 18 07/23/17 11:35 Blood Pressure 154/67 07/23/17 11:35 O2 Sat by Pulse Oximetry 98 07/23/17 11:35 Temperature 98.1 F 07/23/17 11:35 Pulse Rate 90 07/23/17 16:36 Respiratory Rate 16 07/23/17 16:36 Blood Pressure 210/88 07/23/17 16:36 O2 Sat by Pulse Oximetry 100 07/23/17 16:36 Oxygen Delivery Oxygen Delivery Room Air Medical Decision Making - Medical Records Medical records reviewed: Yes I reviewed the patient's medical records. - Lab Data Lab results reviewed: Yes I reviewed the patient's lab results. Result diagrams: 07/23/17 15:06 07/23/17 15:06 Lab Results 07/23/17 07/23/17 07/23/17 Range/Units 15:06 15:06 15:06 WBC 7.1 (4.3-11.1) K/mcL RBC 4.28 (3.82-4.97) M/mcL Hgb 11.7 (11.5-15.4) g/dL Hct 34.8 L (35.3-44.9) % MCV 81.3 L (83.0-100.0) fL MCH 27.3 L (28.0-33.3) pg MCHC 33.6 (31.6-35.5) g/dL RDW 13.7 (11.5-14.5) % Plt Count 253 (140-400) K/mcL MPV 9.6 (9.4-12.4) fL Immature Gran % 0.1 (0-4) % Seg Neutrophils % 47.9 % Lymphocytes % 37.8 % Monocytes % 9.8 % Eosinophils % 3.6 % Basophils % 0.8 % Neutrophils # 3.4 (1.6-8.9) K/mcL Lymphocytes # 2.7 (0.6-4.6) K/mcL Monocytes # 0.7 (0.0-1.3) K/mcL Eosinophils # 0.3 (0.0-0.6) K/mcL Basophils # 0.1 (0.0-0.2) K/mcL PT 10.4 (9.4-12.1) Seconds INR 1.0 APTT 27.6 (26.0-36.0) Seconds Sodium 143 (136-145) mEq/L Potassium 3.3 L (3.5-4.5) mEq/L Chloride 110 H (98-109) mEq/L Carbon Dioxide 24 (19-29) mEq/L BUN 15 (7-20) mg/dL Creatinine 0.82 (0.57-1.11) mg/dL Est GFR ( Amer) > 60 (> 60) Est GFR (Non-Af Amer) > 60 (> 60) BUN/Creatinine Ratio 18 (6-26) Glucose 121 H (70-99) mg/dL Calculated Osmolality 298 (280-300) Lactic Acid (0.5-2.2) mmol/L Calcium 8.8 (8.6-10.8) mg/dL Total Bilirubin 0.2 (0.2-1.2) mg/dL Direct Bilirubin 0.1 (0.0-0.5) mg/dL Indirect Bilirubin 0.1 (0.0-1.2) mg/dL AST 16 (5-34) Units/L ALT 12 (0-55) Units/L Alkaline Phosphatase 57 (38-126) Units/L Troponin I (0-0.03) ng/mL B-Natriuretic Peptide (0-100) pg/mL Serum Total Protein 6.6 (6.0-8.3) g/dL Albumin 3.4 L (3.5-5.0) g/dL Globulin 3.2 (2.4-3.5) g/dL Albumin/Globulin Ratio 1.1 (1.1-2.2) Urine Color (Yellow) Urine Clarity (Clear) Urine pH (5.0-8.0) pH Units Ur Specific [place] (1.010-1.025) Urine Protein (Neg-Trace) mg/dL Urine Glucose (UA) (Normal) mg/dL Urine Ketones (Negative) mg/dL Urine Blood (Negative) Urine Nitrite (Negative) Urine Bilirubin (Negative) Urine Urobilinogen (Normal) mg/dL Ur Leukocyte Esterase (Negative) Urine Microscopic RBC (0-3) per hpf Urine Microscopic WBC (0-3) per hpf Ur Squamous Epith Cells (None-Few) per lpf Urine Bacteria (None-Few) per hpf Hyaline Casts (None-Few) per lpf Ur Culture Indicated? (NO) 07/23/17 07/23/17 07/23/17 Range/Units 15:06 15:06 15:06 WBC (4.3-11.1) K/mcL RBC (3.82-4.97) M/mcL Hgb (11.5-15.4) g/dL Hct (35.3-44.9) % MCV (83.0-100.0) fL MCH (28.0-33.3) pg MCHC (31.6-35.5) g/dL RDW (11.5-14.5) % Plt Count (140-400) K/mcL MPV (9.4-12.4) fL Immature Gran % (0-4) % Seg Neutrophils % % Lymphocytes % % Monocytes % % Eosinophils % % Basophils % % Neutrophils # (1.6-8.9) K/mcL Lymphocytes # (0.6-4.6) K/mcL Monocytes # (0.0-1.3) K/mcL Eosinophils # (0.0-0.6) K/mcL Basophils # (0.0-0.2) K/mcL PT (9.4-12.1) Seconds INR APTT (26.0-36.0) Seconds Sodium (136-145) mEq/L Potassium (3.5-4.5) mEq/L Chloride (98-109) mEq/L Carbon Dioxide (19-29) mEq/L BUN (7-20) mg/dL Creatinine (0.57-1.11) mg/dL Est GFR ( Amer) (> 60) Est GFR (Non-Af Amer) (> 60) BUN/Creatinine Ratio (6-26) Glucose (70-99) mg/dL Calculated Osmolality (280-300) Lactic Acid 1.2 (0.5-2.2) mmol/L Calcium (8.6-10.8) mg/dL Total Bilirubin (0.2-1.2) mg/dL Direct Bilirubin (0.0-0.5) mg/dL Indirect Bilirubin (0.0-1.2) mg/dL AST (5-34) Units/L ALT (0-55) Units/L Alkaline Phosphatase (38-126) Units/L Troponin I 0.01 (0-0.03) ng/mL B-Natriuretic Peptide 163 H (0-100) pg/mL Serum Total Protein (6.0-8.3) g/dL Albumin (3.5-5.0) g/dL Globulin (2.4-3.5) g/dL Albumin/Globulin Ratio (1.1-2.2) Urine Color (Yellow) Urine Clarity (Clear) Urine pH (5.0-8.0) pH Units Ur Specific [place] (1.010-1.025) Urine Protein (Neg-Trace) mg/dL Urine Glucose (UA) (Normal) mg/dL Urine Ketones (Negative) mg/dL Urine Blood (Negative) Urine Nitrite (Negative) Urine Bilirubin (Negative) Urine Urobilinogen (Normal) mg/dL Ur Leukocyte Esterase (Negative) Urine Microscopic RBC (0-3) per hpf Urine Microscopic WBC (0-3) per hpf Ur Squamous Epith Cells (None-Few) per lpf Urine Bacteria (None-Few) per hpf Hyaline Casts (None-Few) per lpf Ur Culture Indicated? (NO) 07/23/17 Range/Units 16:41 WBC (4.3-11.1) K/mcL RBC (3.82-4.97) M/mcL Hgb (11.5-15.4) g/dL Hct (35.3-44.9) % MCV (83.0-100.0) fL MCH (28.0-33.3) pg MCHC (31.6-35.5) g/dL RDW (11.5-14.5) % Plt Count (140-400) K/mcL MPV (9.4-12.4) fL Immature Gran % (0-4) % Seg Neutrophils % % Lymphocytes % % Monocytes % % Eosinophils % % Basophils % % Neutrophils # (1.6-8.9) K/mcL Lymphocytes # (0.6-4.6) K/mcL Monocytes # (0.0-1.3) K/mcL Eosinophils # (0.0-0.6) K/mcL Basophils # (0.0-0.2) K/mcL PT (9.4-12.1) Seconds INR APTT (26.0-36.0) Seconds Sodium (136-145) mEq/L Potassium (3.5-4.5) mEq/L Chloride (98-109) mEq/L Carbon Dioxide (19-29) mEq/L BUN (7-20) mg/dL Creatinine (0.57-1.11) mg/dL Est GFR ( Amer) (> 60) Est GFR (Non-Af Amer) (> 60) BUN/Creatinine Ratio (6-26) Glucose (70-99) mg/dL Calculated Osmolality (280-300) Lactic Acid (0.5-2.2) mmol/L Calcium (8.6-10.8) mg/dL Total Bilirubin (0.2-1.2) mg/dL Direct Bilirubin (0.0-0.5) mg/dL Indirect Bilirubin (0.0-1.2) mg/dL AST (5-34) Units/L ALT (0-55) Units/L Alkaline Phosphatase (38-126) Units/L Troponin I (0-0.03) ng/mL B-Natriuretic Peptide (0-100) pg/mL Serum Total Protein (6.0-8.3) g/dL Albumin (3.5-5.0) g/dL Globulin (2.4-3.5) g/dL Albumin/Globulin Ratio (1.1-2.2) Urine Color Yellow (Yellow) Urine Clarity Clear (Clear) Urine pH 6.0 (5.0-8.0) pH Units Ur Specific [place] 1.030 H (1.010-1.025) Urine Protein Negative (Neg-Trace) mg/dL Urine Glucose (UA) Normal (Normal) mg/dL Urine Ketones Negative (Negative) mg/dL Urine Blood Negative (Negative) Urine Nitrite Negative (Negative) Urine Bilirubin Negative (Negative) Urine Urobilinogen Normal (Normal) mg/dL Ur Leukocyte Esterase Moderate H (Negative) Urine Microscopic RBC 0-3 (0-3) per hpf Urine Microscopic WBC 5-15 H (0-3) per hpf Ur Squamous Epith Cells Many H (None-Few) per lpf Urine Bacteria None Seen (None-Few) per hpf Hyaline Casts None Seen (None-Few) per lpf Ur Culture Indicated? YES A (NO) - Radiology Data Radiology results reviewed: Yes I reviewed the patient's radiology results. Chest x-ray is otherwise unremarkable. CT of the chest pending at this time. - EKG Data EKG #1 EKG attestation: Yes I reviewed and interpreted this EKG. EKG results narrative: Patient seen and evaluated. EKG shows sinus bradycardia. Chronic ST depression and inversions in all leads at this time. No acute signs of ST segment elevation. No acute signs of myocardial infarction. Patient denies any chest pain. EKG from 02/28/17 EKG shows normal: sinus rhythm, axis, intervals, QRS complexes, ST-T waves Rate: bradycardia Rhythm: NSR [place]/QRS: normal
[2017-07-23 16:56] LABS: Bilirubin,Urine Negative (Negative); Blood,Urine Negative (Negative); Clarity,Urine Clear (Clear); Color,Urine Yellow (Yellow); Glucose,Urine (UA) Normal (Normal); Ketones,Urine Negative (Negative); Leukocyte Esterase,Urine Moderate (Negative); Nitrite,Urine Negative (Negative); Protein,Urine Negative (Neg-Trace); Urobilinogen,Urine Normal (Normal)
[2017-07-23 16:58] LABS: Bacteria,Urine None Seen per hpf (None-Few); Hyaline Casts,Urine None Seen per lpf (None-Few); RBC,Urine 0-3 per hpf (0-3); Squamous Epithelial Cell,Urine Many per lpf (None-Few)
[2017-07-23] MEDS ORDERED: *HR* Metoprolol 5 MG/5 ML VIAL IVP ONE ×2 (17:48→18:19)
[2017-07-23] MEDS ORDERED: Ondansetron ODT 4 MG TAB.RAPDIS SL PRN (21:53)
[2017-07-23] MEDS ORDERED: Nitroglycerin 0.4 MG TAB.SUBL SL PRN (21:53)
[2017-07-23] MEDS ORDERED: Ibuprofen 800 MG TABLET PO PRN (21:54)
[2017-07-23] MEDS ORDERED: *HR* Morphine 2 MG/ML SYRINGE IVP ONE (22:01)
[2017-07-23] MEDS: Budesonide/Formoterol 80/4.5 MDI IH SCH (22:16)
[2017-07-23] MEDS: traMADol 50 MG TABLET PO SCH ×2 (22:20)
[2017-07-23] MEDS: *HR* LORazepam 1 MG TABLET PO PRN (22:21)
[2017-07-23] MEDS: Acetaminophen 325 MG TABLET PO SCH (22:23)
[2017-07-23] MEDS ORDERED: Ipratropium/Albuterol Neb 3 ML IH PRN (22:43)
--- NOTE | 2017-07-23 22:49 | Internal Med History&Physical ---
<Jose Guadalupe Coyle - Last Filed: 07/24/17 00:01> Date of Encounter: 07/24/17 Time of Encounter: 20:45 Assessment and Plan (1) Cough Current visit: Yes Status: Acute Patient's coughing symptoms have improved since admission to the hospital. After receiving DuoNeb's, patient's cough subsided. -It is possible the patient's cough is related to her asthma and is provoked by her acid reflux. -Increase patient's Prilosec to 40 twice a day. -Patient may need an EGD in the future. (2) Essential hypertension Current visit: Yes Status: Chronic Patient presented to the hospital for an elevated blood pressure at 210/80. -Patient was given several small boluses of metoprolol. -After the administration of metoprolol, patient's systolic blood pressure has decreased to 170s. -Continue to monitor vital signs. -Patient's home medications resumed. (3) Asthma Current visit: No Status: Chronic Patient does have a known history of asthma, for which she takes Proair. -Patient's cough is possibly secondary to her asthma. -DuoNeb as needed. -Resume home medications. Qualifiers: Asthma severity: unspecified severity Asthma complication type: unspecified Qualified Code(s): J45.909 - Unspecified asthma, uncomplicated (4) Acid reflux Current visit: Yes Status: Acute Qualifiers: Esophagitis presence: without esophagitis Qualified Code(s): K21.9 - Gastro -esophageal reflux disease without esophagitis Internal Medicine - H&P: HPI History of present illness: Ms. Goddard is a 72 year old female with past medical history of asthma, coronary artery disease, diabetes, hyperlipidemia, hypertension who presented to the emergency department with the chief complaint of cough. Patient states that she has had this cough for last 3 weeks. Patient admits to having a productive sputum with this cough, as well as fever and chills at home. Patient denies having any chest pain or shortness of breath. Patient states that she received a course of antibiotics for this cough, and has completed full course. Patient states that these antibiotics did not help. Upon presentation, patient had a dry hacking cough. Patient denies taking any KULDIP inhibitors. She denies any recent changes to her medications. Chest x-ray is unremarkable. CT angiography performed in the ER revealed the presence of a hiatal hernia and acid reflux. Patient does have a known history of reflux, and takes Prilosec at home. Upon examination, patient states that her cough has improved. Patient received duo nebs in the ER, and she no longer has a cough or any shortness of breath. Patient does however complain of hip pain. Patient states that she has had hip pain for years, and normally takes Ultram and Motrin at home. Patient complains that she did not receive her medications upon admission to the hospital. Patient is in visible distress due to her hip pain, but does not complain of any other symptoms related to her original complaint. Past Med Surg Social Fam HX - Past Medical History Medical history: asthma, coronary artery disease, diabetes, hyperlipidemia, hypertension, other Psychiatric history: anxiety, depression - Past Surgical History Surgical History: angioplasty/stent, cataract, hysterectomy - Social History Smoking Status: Never smoker Smokeless Tobacco Status: No Alcohol use: none Drug use: none - Family History Mother History Unknown: Yes Hx Family Endocrine Disorder: Yes (diabetes) Internal Medicine - H&P: Meds Aspirin [Adult Low Dose Aspirin EC] 81 mg PO DAILY 10/12/15 [History] Citalopram [CeleXA] 40 mg PO DAILY 10/12/15 [History] Albuterol Sulfate [Proair Hfa] 2 puff IH Q4H PRN 02/28/17 [History] Donepezil [Aricept] 10 mg PO HS 02/28/17 [History] LORazepam [Ativan] 1 mg PO HS 02/28/17 [History] Omeprazole [PriLOSEC] 40 mg PO DAILY 02/28/17 [History] Acetaminophen [Tylenol Arthritis] 650 mg PO QAM AND QHS 07/23/17 [History] Fluticasone/Salmeterol [Advair 250-50 Diskus] 1 each IH BID 07/23/17 [History] Ibuprofen [Motrin] 800 mg PO Q8HR 07/23/17 [History] LORazepam [Ativan] 0.5 mg PO QAM 07/23/17 [History] Nitroglycerin [Nitrostat] 0.4 mg SL Q5M PRN 07/23/17 [History] Ondansetron HCl [Zofran] 4 mg PO Q8H PRN 07/23/17 [History] Tramadol HCl [Ultram] 25 mg PO BID 07/23/17 [History] Tramadol HCl [Ultram] 50 mg PO HS 07/23/17 [History] 3 Allergy/AdvReac Type Severity Reaction Status Date / Time codeine Allergy Anaphylaxis Verified 02/28/17 16:12 Sulfa (Sulfonamide Allergy Hives Verified 02/28/17 16:12 Antibiotics) All Systems PM: A 10-system review of systems was performed and is negative for pertinent findings except as documented above in the HPI. - Constitutional Constitutional: no chills, no fever(s), no night sweats - EENT Nose, mouth and throat: no dysphagia, no nasal discharge, no neck pain, no sore throat - Cardiovascular Cardiovascular ROS IM: no chest pain, no diaphoresis, no dyspnea, no lightheadedness, no palpitations, no syncope - Respiratory Respiratory: no cough, no dyspnea, no wheezing, no excessive phlegm production - Gastrointestinal Gastrointestinal: no nausea - Musculoskeletal Musculoskeletal ROS IM: arthralgias, limited range of motion - Neurological Neurological ROS: no numbness - Constitutional Vitals: Temp Pulse Resp BP Pulse Ox 98.4 F 69 16 194/84 98 07/23/17 20:37 07/23/17 20:37 07/23/17 22:16 07/23/17 20:37 07/23/17 22:16 - Neck Neck exam general surgery: Present: supple, trachea midline. Absent: lymphadenopathy - Respiratory Respiratory exam: Present: CTAB. Absent: accessory muscle use, rales, rhonchi, wheezes - Cardiovascular Cardiovascular exam: Present: RRR, +S1, +S2. Absent: diastolic murmur, gallop, rubs, systolic murmur - Psychiatric Psychiatric exam: Present: anxious - Skin Skin exam: Present: dry, intact Internal Med - H&P Results - Labs CBC & Chem 7: 07/23/17 15:06 07/23/17 15:06 <Gopi Villagran - Last Filed: 07/24/17 01:08> Date of Encounter: 07/24/17 Time of Encounter: 00:44 All Systems PM: A 10-system review of systems was performed and is negative for pertinent findings except as documented above in the HPI. - Constitutional Constitutional: no fever(s) - EENT Eyes: no blurry vision, no change in vision Nose, mouth and throat: no nasal congestion, no sinus pressure, no sore throat - Cardiovascular Cardiovascular ROS IM: chest pain, no dyspnea, no dyspnea on exertion - Respiratory Respiratory: cough, no hemoptysis, no chest congestion, no excessive phlegm production - Gastrointestinal Gastrointestinal: dyspepsia, heartburn, no abdominal pain, no hematemesis, no hematochezia, no melena - Genitourinary Genitourinary: no dysuria, no flank pain, no hematuria - Musculoskeletal Musculoskeletal ROS IM: arthralgias, back pain - Integumentary Integumentary IM: no rash, no jaundice - Neurological Neurological ROS: no dizziness, no focal weakness, no frequent falls - Psychiatric Psychiatric: anxiety, no depression - Endocrine Endocrine IM: no polydipsia, no polyuria - Allergic/Immunologic Allergic/Immunologic: wheezing, GI upset with certain foods - Constitutional Vitals: Temp Pulse Resp BP Pulse Ox 98.3 F 76 15 171/77 98 07/23/17 23:18 07/23/17 23:18 07/23/17 23:18 07/23/17 23:18 07/23/17 23:18 General appearance: Present: mild distress, A&O X 3 - Head Head exam: Present: normal inspection - Eye Eye exam: Present: EOMI, PERRL. Absent: scleral icterus Pupils: Present: normal accommodation - ENT ENT exam: Present: mucous membranes dry, normal exam - Neck Neck exam general surgery: Present: supple. Absent: tenderness - Respiratory Respiratory exam: Present: CTAB. Absent: chest wall tenderness, rales, rhonchi , wheezes - Cardiovascular Cardiovascular exam: Present: RRR, +S1 - GI/Abdominal GI/Abdominal exam: Present: normal bowel sounds, soft. Absent: hepatomegaly, splenomegaly, tenderness - Extremities Exam Extremities exam: Present: full ROM, tenderness (knees and right hip -- chronic) . Absent: calf tenderness - Back Exam Back exam: Absent: CVA tenderness (L), CVA tenderness (R) - Neurological Exam Neurological exam: Present: alert, oriented X3, no focal deficits - Psychiatric Psychiatric exam: Present: anxious. Absent: depressed - Skin Skin exam: Present: dry, warm. Absent: rash Internal Med - H&P Results - Labs CBC & Chem 7: 07/23/17 15:06 07/23/17 15:06 - EKG Data -: EKG Interpreted by Myself EKG shows normal: sinus rhythm - EKG Data Prior EKG available for review: yes When compared to previous EKG: there is no significant change EKG comments: 07/24/17 00:48 Sinus bradycardia; anterolateral ST-T depression/changes -- chronic - Diagnostic Studies Chest x-ray Status: image reviewed by me (negative) - Attending Attestation I discussed the patient LA JOLLA, PMH, ROS, lab data, and exam findings with Dr. Coyle. I then saw and examined patient independently as well. Patient has minimal cough now and improved immensely with the Duoneb aerosol treatments. She has no wheezing or cough now. She complained of chest pain earlier with her cough -- resolved after nebulizer. EKG a little concerning for ischemia. Will check serial troponins and follow closely. Presently, I believe she had an asthma flare (cough variant) causing most of her symptoms. Other than my comments and noted exam findings, I agree with Dr. Coyle's assessment and plan.
[2017-07-24] MEDS: Sucralfate 1 GM TABLET PO SCH ×2 (06:19→16:33)
[2017-07-24] MEDS: *HR* Heparin 5,000 UNIT/ML VIAL SQ SCH ×2 (06:20→16:57)
[2017-07-24] MEDS: *HR* LORazepam 0.5 MG TABLET PO SCH (08:50)
[2017-07-24] MEDS: Acetaminophen 325 MG TABLET PO SCH ×2 (08:50→20:55)
[2017-07-24] MEDS: traMADol 50 MG TABLET PO SCH ×3 (08:50→20:56)
[2017-07-24] MEDS: Aspirin Enteric Coated 81 MG Tablet PO SCH (08:51)
[2017-07-24] MEDS: Budesonide/Formoterol 80/4.5 MDI IH SCH ×2 (10:58→22:06)
--- NOTE | 2017-07-24 15:23 | Internal Med Progress Note ---
Date of Encounter: 07/24/17 Time of Encounter: 14:20 - Assessment and plan (1) Cough Current Visit: Yes Status: Acute Assessment and plan: x patient reports one-month history of productive cough with yellow/white sputum. Cough sounds dry and hacking, however it is productive. Lungs are diminished posteriorly, wheezing heard in anterior lung salgado. Patient denies fevers, chills, back pain, or respiratory distress. Patient appears to be weak , tired. Patient states that she is not feel well currently, however she states that she has been able to get up and perform her normal activities without difficulty at home. Pt is not requiring supplemental 02. Changed duo nebs from when necessary to scheduled, add albuterol treatments every 2 hours as needed. Continue other inhalers. Also add guaifenesin. Continue to monitor labs, vitals, including pulse ox, and titrate 02 to maintain sats > 92%. (2) Diabetes Current Visit: Yes Status: Chronic Assessment and plan: A1c is 5.3 in March. We will redraw in the morning. Qualifiers: Diabetes mellitus type: type 2 Diabetes mellitus complication status: with unspecified complications Diabetes mellitus terminal gauger supervisor insulin use: without terminal gauger supervisor use Qualified Code(s): E11.8 - Type 2 diabetes mellitus with unspecified complications (3) Essential hypertension Current Visit: Yes Status: Chronic Assessment and plan: Well controlled. Continue home medications. (4) Asthma Current Visit: Yes Status: Chronic Assessment and plan: Patient with history of asthma. Most likely cough is from acute exacerbation. Lungs are clear and diminished posteriorly with wheezing heard anteriorly. Continue inhalers,, duo nebs scheduled, albuterol nebs when necessary. I have added guaifenesin for cough. Continue to monitor her vital signs and labs. Qualifiers: Asthma severity: unspecified severity Asthma complication type: unspecified Qualified Code(s): J45.909 - Unspecified asthma, uncomplicated (5) CKD (chronic kidney disease) stage 3, GFR 30-59 ml/min Current Visit: Yes Status: Chronic Assessment and plan: Renal function is within normal limits. Continue to avoid nephrotoxins and monitor patient's labs. (6) Acid reflux Current Visit: Yes Status: Acute Assessment and plan: Chronic. Continue home medications. Qualifiers: Esophagitis presence: without esophagitis Qualified Code(s): K21.9 - Gastro -esophageal reflux disease without esophagitis - Time Spent With Patient less than 15 minutes - Subjective Interval history: Pt was seen and assessed at 1420. Pt has productive cough with yellow/white sputum x 1 week, as well as weakness and diaphoresis with episodes of coughing. She denies chest pain, weakness, headache, blurred vision, neck pain, abdominal pain, nausea, vomiting, diarrhea. Pt states that she may be moving in with her daughter soon. - Constitutional Vitals: Temp Pulse Resp BP Pulse Ox 98.2 F 73 16 146/70 96 07/24/17 12:04 07/24/17 12:04 07/24/17 12:04 07/24/17 12:04 07/24/17 12:04 General appearance: Present: mild distress, A&O X 3, pleasant, no acute distress , answers questions appropriately - Head Head exam: Present: atraumatic, normal inspection, normocephalic - Eye Eye exam: Present: conjuntiva pink, sclera anicteric - Neck Neck exam general surgery: Present: normal inspection, supple, trachea midline. Absent: lymphadenopathy, tenderness - Respiratory Respiratory exam: Present: decreased breath sounds, CTAB, wheezes. Absent: accessory muscle use, chest wall tenderness, rales, respiratory distress, rhonchi - Cardiovascular Cardiovascular exam: Present: RRR, +S1, +S2. Absent: diastolic murmur, gallop, rubs, systolic murmur - GI/Abdominal GI/Abdominal exam: Present: normal bowel sounds, soft, no peritoneal signs. Absent: distended, hepatomegaly, tenderness - Extremities Exam Extremities exam: Present: normal capillary refill, warm, radial pulses palpable and symmetrical. Absent: calf tenderness, cyanotic, pedal edema, tenderness - Neurological Exam Neurological exam: Present: CN II-XII intact, oriented X3, no focal deficits. Absent: pronater drift, facial droop, speech deficit - Skin Skin exam: Present: dry, intact, normal color, warm. Absent: rash Internal Medicine: Result - Labs CBC & Chem 7: 07/23/17 15:06 07/23/17 15:06 Labs: Cardiac Enzymes 07/24/17 07/24/17 07/24/17 Range/Units 03:16 07:22 12:57 Troponin I 0.04 H* 0.05 H* 0.02 (0-0.03) ng/mL - ABG Interpretation ABG results: PT/INR, D-dimer PT 10.4 Seconds (9.4-12.1) 07/23/17 15:06 Consult Discharge Plan - Plan Referrals: Flores Hernández, RAE [Primary Care Provider] -
[2017-07-24] MEDS ORDERED: Albuterol 2.5 MG/3 ML NEBULIZER IH PRN (15:43)
--- NOTE | 2017-07-24 16:41 | Electrocardiograph Report ---
[address] [address] Test Date: 2017-07-23 Pat Name: Shavonne Goddard Department: 103 Room: 3B Gender: F Career Services Coordinator: EKP : 1945 Requested By: Louis Miguel Order Number: [id number] Reading MD: Heather Rodgers Measurements Intervals [place] Rate: 55 P: 57 PA: 164 QRS: 17 QRSD: 88 T: 264 QT: 456 QTc: 445 Interpretive Statements SINUS BRADYCARDIA ST DEVIATION AND MODERATE T-WAVE ABNORMALITY, CONSIDER ANTEROLATERAL ISCHEMIA [- 0.1+ mV T WAVE IN V3-V6] ST DEVIATION AND MODERATE T-WAVE ABNORMALITY, CONSIDER INFERIOR ISCHEMIA [-0.1+ mV T WAVE IN II/aVF] Electronically Signed On 07-24-2017 16:39:43 EDT by Heather Rodgers
[2017-07-24] MEDS: *HR* LORazepam 1 MG TABLET PO PRN (20:59)
[2017-07-25] MEDS: *HR* Heparin 5,000 UNIT/ML VIAL SQ SCH (06:25)
[2017-07-25] MEDS: Budesonide/Formoterol 80/4.5 MDI IH SCH (07:57)
[2017-07-25] MEDS ORDERED: traMADol 50 MG TABLET PO SCH (09:00)
[2017-07-25] MEDS: Aspirin Enteric Coated 81 MG Tablet PO SCH (09:16)
[2017-07-25] MEDS: Sucralfate 1 GM TABLET PO SCH (09:16)
[2017-07-25] MEDS: Acetaminophen 325 MG TABLET PO SCH (09:16)
[2017-07-25] MEDS: traMADol 50 MG TABLET PO SCH ×2 (09:17→15:14)
[2017-07-25] MEDS: *HR* LORazepam 0.5 MG TABLET PO SCH (09:17)
--- NOTE | 2017-07-25 16:12 | Discharge Summary ---
Date of Encounter: 07/25/17 Time of Encounter: 15:30 - Discharge Diagnosis (1) Cough Priority: Primary Status: Acute Comments: Pt states that cough has improved. Most likely due to asthma exacerbation. Pt states that she is out of her Atrovent inhaler, will refill. Continue mucinex and inhalers at home. (2) Diabetes Priority: Secondary Status: Chronic Comments: A1c 5.3 % in March. Pt is not on home medications. Follow up with PCP. Qualifiers: Diabetes mellitus type: type 2 Diabetes mellitus complication status: with unspecified complications Diabetes mellitus machine long goods helper insulin use: without machine long goods helper use Qualified Code(s): E11.8 - Type 2 diabetes mellitus with unspecified complications (3) Essential hypertension Priority: Secondary Status: Chronic Comments: Chronic. Continue home medications. (4) Asthma Priority: Secondary Status: Chronic Comments: Acute exacerbation. Pt with prod cough, wheezing, and URI symptoms. Continue inhalers and mucinex. Qualifiers: Asthma severity: unspecified severity Asthma complication type: unspecified Qualified Code(s): J45.909 - Unspecified asthma, uncomplicated (5) CKD (chronic kidney disease) stage 3, GFR 30-59 ml/min Priority: Secondary Status: Chronic Comments: Chronic. Avoid nephrotoxins and follow up with PCP. (6) Acid reflux Priority: Secondary Status: Chronic Comments: Chronic. Continue home medications. Qualifiers: Esophagitis presence: without esophagitis Qualified Code(s): K21.9 - Gastro -esophageal reflux disease without esophagitis (7) DVT prophylaxis Priority: Secondary Status: Acute Comments: Heparin SQ - Discharge Medications Prescriptions: Fluticasone/Salmeterol [Advair 250-50 Diskus] 1 each IH BID #1 blst.w.dev GuaiFENesin ER [Mucinex] 600 mg PO BIDWM #10 tbbp.12hr Home Medications: Aspirin [Adult Low Dose Aspirin EC] 81 mg PO DAILY 10/12/15 [History] Citalopram [CeleXA] 40 mg PO DAILY 10/12/15 [History] Albuterol Sulfate [Proair Hfa] 2 puff IH Q4H PRN 02/28/17 [History] Donepezil [Aricept] 10 mg PO HS 02/28/17 [History] LORazepam [Ativan] 1 mg PO HS 02/28/17 [History] Omeprazole [PriLOSEC] 40 mg PO DAILY 02/28/17 [History] Acetaminophen [Tylenol Arthritis] 650 mg PO QAM AND QHS 07/23/17 [History] Ibuprofen [Motrin] 800 mg PO Q8HR 07/23/17 [History] LORazepam [Ativan] 0.5 mg PO QAM 07/23/17 [History] Nitroglycerin [Nitrostat] 0.4 mg SL Q5M PRN 07/23/17 [History] Ondansetron HCl [Zofran] 4 mg PO Q8H PRN 07/23/17 [History] Tramadol HCl [Ultram] 25 mg PO BID 07/23/17 [History] Tramadol HCl [Ultram] 50 mg PO HS 07/23/17 [History] Fluticasone/Salmeterol [Advair 250-50 Diskus] 1 each IH BID #1 blst.w.dev [Rx] GuaiFENesin ER [Mucinex] 600 mg PO BIDWM #10 tbbp.12hr 07/25/17 [Rx] Allergies/Adverse Reactions: 3 Allergy/AdvReac Type Severity Reaction Status Date / Time codeine Allergy Anaphylaxis Verified 02/28/17 16:12 Sulfa (Sulfonamide Allergy Hives Verified 02/28/17 16:12 Antibiotics) Date of admission: 07/23/17 18:46 Primary care physician: Flores Hernández CNP Discharging clinician: Erica Chiu Anticipated date of discharge: 07/25/17 - Patient Status Disposition: Home, Self-Care Condition: Good Functional capacity at discharge: independent ambulation Overall status at discharge: patient is progressing back to baseline - Discharge Instructions Follow Up With: Flores Hernández CNP [Primary Care Provider] - 07/31/17 1:00 pm Additional Instructions: Follow up with your PCP in the next 7-10 days for a follow up visit. Return to the ER as needed for any other problems or concerns, or if your symptoms return or worsen. Take your medications as directed. Return to your normal activity level as tolerated and resume your normal medications at home. I have called in prescriptions for you to [facility] pharmacy. - Diet and Activity Activity: increase activity as tolerated, wear oxygen at all times, wear oxygen at night Diet: advance to your usual diet Hospital course: Ms. Goddard is a 72 year old female with past medical history of asthma, GERD, anxiety, dementia, depression, coronary artery disease, hyperlipidemia, hiatal hernia, diabetes, and stage III CKD. She presented to the emergency department with chief complaint of cough onset 3 weeks prior to arrival. She reports productive cough fever and chills at home. She denies having any chest pain, shortness of breath, nausea, vomiting, diaphoresis. She states that she reviewed received a course of anal pain on external cough from her primary care and has completed all. She reports that antibiotics were not helpful. Chest x- ray was unremarkable, CTA chest from the ER revealed a hiatal hernia and acid reflux. Patient received 2 nebs in the emergency department, as well as during admission. She continued her inhalers and seemed to improve. Cough is now productive of clear sputum, she does have some very faint wheezing in bilateral posterior bases. Patient will be sent home with prescription for Mucinex. She reports that she has been out of her Advair inhaler at home and is only been using ProAir. I have given her a refill of ProAir, as well as a prescription for Mucinex. This is most likely an exacerbation of her asthma, she will continue her home medications. She also may have a URI. Patient reports some rhinorrhea, however to someone to take anymore medication for it. Patient will continue the rest of her home medications and resume activities as tolerated. Her labs were stable in admission, her vital signs are stable and within normal limits. Patient is ready and appropriate for discharge. - Time Spent with Patient Total time spent providing and/or coordinating discharge services: Less than 30 minutes - Constitutional Vitals: Temp Pulse Resp BP Pulse Ox 98.0 F 65 17 174/80 94 07/25/17 11:36 07/25/17 11:36 07/25/17 11:36 07/25/17 11:36 07/25/17 11:36 General appearance: Present: mild distress, A&O X 3, pleasant, no acute distress , answers questions appropriately. Absent: severe distress - Head Head exam: Present: atraumatic, normal inspection, normocephalic - Eye Eye exam: Present: normal appearance, conjuntiva pink, sclera anicteric - Neck Neck exam general surgery: Present: normal inspection, supple, trachea midline. Absent: lymphadenopathy, tenderness - Respiratory Respiratory exam: Present: CTAB, wheezes. Absent: accessory muscle use, rales, respiratory distress, rhonchi - Cardiovascular Cardiovascular exam: Present: RRR, +S1, +S2. Absent: diastolic murmur, gallop, rubs, systolic murmur - GI/Abdominal GI/Abdominal exam: Present: normal bowel sounds, soft, no peritoneal signs. Absent: distended, hepatomegaly, tenderness - Extremities Exam Extremities exam: Present: normal inspection, warm, radial pulses palpable and symmetrical. Absent: calf tenderness, cyanotic, pedal edema - Neurological Exam Neurological exam: Present: alert, oriented X3, no focal deficits. Absent: facial droop, speech deficit - Skin Skin exam: Present: dry, intact, normal color, warm. Absent: rash
[2017-07-25 17:04] VITALS: BP 172/72
== END 2017-07-25 17:40 | disposition home or self-care (01) ==
LOC: 3BNU 11:02 → EMEROO 11:02 → 3BNU 19:20
PROVIDERS: ADMIT Internal Medicine Hematology & Oncology; ATTEND Registered Nurse

== ENCOUNTER 2017-12-04 20:30 | Inpatient (IN) ==
[2017-12-04 21:39] LABS: Hematocrit 35.3 % (35.3-44.9); Hemoglobin 11.5 g/dL (11.5-15.4); Mean Corpuscular HGB Conc 32.6 g/dL (31.6-35.5); Mean Corpuscular Hemoglobin 26.7 pg (28.0-33.3); Mean Corpuscular Volume 81.9 fL (83.0-100.0); Mean Platelet Volume 9.7 fL (9.4-12.4); Monocytes # 1.3 K/mcL (0.0-1.3); Platelet Count 362 K/mcL (140-400); Red Blood Count 4.31 M/mcL (3.82-4.97)
[2017-12-04] MEDS ORDERED: Ipratropium/Albuterol Neb 3 ML IH ONE (21:52)
--- NOTE | 2017-12-04 21:54 | Emergency Department Note ---
Disposition Clinical Impression: Acute exacerbation of chronic obstructive airways disease UTI (urinary tract infection) Qualifiers: Urinary tract infection type: acute cystitis Hematuria presence: without hematuria Qualified Code(s): N30.00 - Acute cystitis without hematuria Disposition: Admitted As Inpatient Condition: Fair Referrals: Flores Hernández TRAIN [employer] SERVER [Primary Care Provider] - Forms: ED Satisfaction Letter Time of Disposition: 22:32 SOB HPI - General Chief Complaint: ED Shortness of Breath/Dyspnea Stated Complaint: "CP/SOB" Time Seen by Provider: 12/04/17 21:51 Source: family Mode of arrival: ambulatory Limitations: no limitations Nursing Notes Reviewed: Yes Vital Signs Reviewed: Yes - History of Present Illness 72-year-old female with a history of asthma who was diagnosed with the flu 2 weeks ago. She had delay in the diagnosis for 4 days and then was started on Tamiflu. She has had cough and wheezing has gotten progressively worse over the last couple of days. Echocardiogram previously shows EF of 55%. Pt Subjective Complaint: shortness of breath, cough Onset (ago): day(s) Context: recent illness (Influenza) Severity: moderate Consistency/Duration: constant Improves with: nothing Worsens with: nothing Known history of: asthma Associated symptoms: Reports: chest pain, fever, cough, wheezing Treatment prior to arrival: none Cough present: Yes Cough Description: Involuntary Cough Frequency: Intermittent - Related Data Home Medications Medication Instructions Recorded Confirmed Aspirin [Adult Low Dose Aspirin EC] 81 mg PO DAILY 10/12/15 07/23/17 Citalopram [CeleXA] 40 mg PO DAILY 10/12/15 07/23/17 Albuterol Sulfate [Proair Hfa] 2 puff IH Q4H PRN 02/28/17 07/23/17 Donepezil [Aricept] 10 mg PO HS 02/28/17 07/23/17 LORazepam [Ativan] 1 mg PO HS 02/28/17 07/23/17 Omeprazole [PriLOSEC] 40 mg PO DAILY 02/28/17 07/23/17 Acetaminophen [Tylenol Arthritis] 650 mg PO QAM AND QHS 07/23/17 07/23/17 Ibuprofen [Motrin] 800 mg PO Q8HR 07/23/17 07/23/17 LORazepam [Ativan] 0.5 mg PO QAM 07/23/17 07/23/17 Nitroglycerin [Nitrostat] 0.4 mg SL Q5M PRN 07/23/17 07/23/17 Ondansetron HCl [Zofran] 4 mg PO Q8H PRN 07/23/17 07/23/17 Tramadol HCl [Ultram] 25 mg PO BID 07/23/17 07/23/17 Tramadol HCl [Ultram] 50 mg PO HS 07/23/17 07/23/17 Quetiapine Fumarate [Seroquel] 25 mg PO DAILY 11/14/17 11/14/17 Previous Rx's Medication Instructions Recorded Fluticasone/Salmeterol [Advair 1 each IH BID #1 blst.w.dev 07/25/17 250-50 Diskus] GuaiFENesin ER [Mucinex] 600 mg PO BIDWM #10 tbbp.12hr 07/25/17 Lactobacillus Acidophilus 1 each PO DAILY #7 tablet 10/19/17 [Probiotic Acidophilus] Nitrofurantoin (BID) [Macrobid] 100 mg PO BID #14 capsule 10/19/17 Amoxicillin/Clavulanate [Augmentin] 875 mg PO BIDWM 5 Days tablet 11/07/17 Allergies Allergy/AdvReac Type Severity Reaction Status Date / Time codeine Allergy Anaphylaxis Verified 11/14/17 08:48 Sulfa (Sulfonamide Allergy Hives Verified 11/14/17 08:48 Antibiotics) All systems ED: reviewed and negative except as stated. Constitutional: Denies: fever, chills, weakness, weight change Eyes: Denies: eye pain, eye discharge, vision change ENT ED: Denies: ear pain, throat pain, dental pain, hearing loss, epistaxis, congestion, dysphagia Cardiovascular: Reports: chest pain. Denies: palpitations, dyspnea on exertion , edema, syncope Respiratory: Reports: cough, dyspnea, wheezes. Denies: hemoptysis, stridor Gastrointestinal: Denies: abdominal pain, nausea, vomiting, diarrhea, constipation, hematemesis, melena, hematochezia Genitourinary: Denies: dysuria, frequency, hematuria, discharge Musculoskeletal: Denies: back pain, neck pain, arthralgia, myalgia Integumentary: Denies: rash, abrasion, lesions Neurological: Denies: headache, weakness, numbness, paresthesias, confusion, abnormal gait, vertigo Psychiatric: Denies: anxiety, depression, suicidal thoughts, homicidal thoughts , auditory hallucinations, visual hallucinations Endocrine: Denies: fatigue Hematological/Lymphatic: Denies: easy bleeding, easy bruising Allergic/Immunologic: Denies: facial swelling, urticaria Past Medical History - Past Medical History Medical history: Reports: asthma, atrial fibrillation, dementia, diabetes, hypertension, other Surgical history: Reports: angioplasty/stent, cataract, hysterectomy Psychiatric history: Reports: anxiety, depression 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 - Social History Smoking Status: Never smoker Smokeless Tobacco Status: No Alcohol use: Reports: none Drug use: Reports: none Physical Exam - General Limitations: no limitations General appearance: alert - Head Head exam: atraumatic, normocephalic, normal inspection - Eye Eye exam: Present: normal appearance, PERRL, EOMI - ENT ENT exam: normal exam - Neck Neck exam: Present: normal inspection, full ROM, trachea midline - Chest Chest inspection: Present: normal inspection, symmetric chest wall rise - Respiratory Respiratory exam: Present: wheezes, accessory muscle use, prolonged expiratory phase - Cardiovascular Cardiovascular exam: Present: regular rate, normal rhythm, normal heart sounds - Abdominal Exam Abdominal exam: Present: soft, Non-Tender. Absent: tenderness, distention, guarding, rebound, rigidity - Extremities Exam Extremities exam: Present: normal inspection, full ROM. Absent: tenderness, pedal edema - Expanded Lower Extremity Exam Neurovascular/Tendon exam: Absent: motor deficit, sensory deficit, tendon deficit Gait: observed and normal - Back Exam Back exam: Present: normal inspection, full ROM. Absent: tenderness - Neurological Exam Neurological exam: Present: alert, oriented X3 - Psychiatric Psychiatric exam: Present: normal affect, normal mood - Skin Skin exam: Present: warm, dry, intact, normal color Course - Reevaluation(s) Reevaluation #1: 72-year-old comes in with cough and wheezing she is asthmatic. Family states she was admitted to a local hospital for UTI last week. Her lactate is 4.2 vitals are stable she was given IV antibiotics will be admitted. Time: 22:37 - Consultations Consultation #1: Discussed with Dr. Felder, admit Time: 22:37 Vital Signs Temperature 99.0 F 12/04/17 20:32 Pulse Rate 84 12/04/17 20:32 Respiratory Rate 20 12/04/17 20:32 Blood Pressure 156/80 12/04/17 20:32 O2 Sat by Pulse Oximetry 99 12/04/17 20:32 Temperature 99.0 F 12/04/17 20:32 Pulse Rate 84 12/04/17 20:32 Respiratory Rate 20 12/04/17 20:32 Blood Pressure 156/80 12/04/17 20:32 O2 Sat by Pulse Oximetry 99 12/04/17 20:32 Oxygen Delivery Oxygen Delivery Room Air Shortness of Breath/Dyspnea - Lab Data Lab results reviewed: Yes I reviewed the patient's lab results. Result diagrams: 12/04/17 21:32 12/04/17 21:32 Lab Results 12/04/17 12/04/17 12/04/17 Range/Units 21:32 21:32 21:32 WBC 12.9 H (4.3-11.1) K/mcL RBC 4.31 (3.82-4.97) M/mcL Hgb 11.5 (11.5-15.4) g/dL Hct 35.3 (35.3-44.9) % MCV 81.9 L (83.0-100.0) fL MCH 26.7 L (28.0-33.3) pg MCHC 32.6 (31.6-35.5) g/dL RDW 12.0 (11.5-14.5) % Plt Count 362 (140-400) K/mcL MPV 9.7 (9.4-12.4) fL Seg Neutrophils % 58.0 % Lymphocytes % 30.0 % Monocytes % 10.0 % Basophils % 2.0 % Neutrophils # 7.5 (1.6-8.9) K/mcL Lymphocytes # 3.9 (0.6-4.6) K/mcL Monocytes # 1.3 (0.0-1.3) K/mcL Basophils # 0.3 H (0.0-0.2) K/mcL Platelet Estimate Normal (Normal) Sodium 145 (136-145) mEq/L Potassium 3.3 L (3.5-5.1) mEq/L Chloride 109 H (98-107) mEq/L Carbon Dioxide 25 (23-29) mEq/L BUN 12 (8-23) mg/dL Creatinine 0.92 (0.60-1.20) mg/dL Est GFR ( Amer) > 60 (> 60) Est GFR (Non-Af Amer) 60 (> 60) BUN/Creatinine Ratio 13 (6-26) Glucose 134 H (70-105) mg/dL Calculated Osmolality 302 H (280-300) Lactic Acid 4.2 H* (0.5-2.2) mmol/L Calcium 8.7 (8.6-10.3) mg/dL Troponin I (< 0.04) ng/mL B-Natriuretic Peptide (Less than 100) pg/mL 12/04/17 12/04/17 Range/Units 21:32 21:32 WBC (4.3-11.1) K/mcL RBC (3.82-4.97) M/mcL Hgb (11.5-15.4) g/dL Hct (35.3-44.9) % MCV (83.0-100.0) fL MCH (28.0-33.3) pg MCHC (31.6-35.5) g/dL RDW (11.5-14.5) % Plt Count (140-400) K/mcL MPV (9.4-12.4) fL Seg Neutrophils % % Lymphocytes % % Monocytes % % Basophils % % Neutrophils # (1.6-8.9) K/mcL Lymphocytes # (0.6-4.6) K/mcL Monocytes # (0.0-1.3) K/mcL Basophils # (0.0-0.2) K/mcL Platelet Estimate (Normal) Sodium (136-145) mEq/L Potassium (3.5-5.1) mEq/L Chloride (98-107) mEq/L Carbon Dioxide (23-29) mEq/L BUN (8-23) mg/dL Creatinine (0.60-1.20) mg/dL Est GFR ( Amer) (> 60) Est GFR (Non-Af Amer) (> 60) BUN/Creatinine Ratio (6-26) Glucose (70-105) mg/dL Calculated Osmolality (280-300) Lactic Acid (0.5-2.2) mmol/L Calcium (8.6-10.3) mg/dL Troponin I < 0.03 (< 0.04) ng/mL B-Natriuretic Peptide 190 H (Less than 100) pg/mL - Radiology Data Radiology results reviewed: Yes I reviewed the patient's radiology results. Chest X-Ray 12/04/17 20:57 IMPRESSION: Negative portable chest. D/ / Neo Ordaz MD / Noe Ordaz MD Interpreting Provider: Neo Ordaz MD - EKG Data EKG attestation: Yes I reviewed and interpreted this EKG. EKG shows normal: Reports: sinus rhythm Rate: Reports: normal T wave inversions noted in: Reports: v4, v5, v6 When compared to previous EKG there are: no significant changes (07/23/2017) Interpretation: Reports: no acute changes
[2017-12-04 21:59] LABS: BUN/Creatinine Ratio 13 (6-26); Blood Urea Nitrogen 12 mg/dL (8-23); Calcium 8.7 mg/dL (8.6-10.3); Carbon Dioxide 25 mEq/L (23-29); Chloride 109 mEq/L (98-107); Glucose 134 mg/dL (70-105); Osmolality,Calculated 302 (280-300); Potassium 3.3 mEq/L (3.5-5.1); Sodium 145 mEq/L (136-145); eGFR For African Americans > 60 (> 60); eGFR For Non-African Americans 60 (> 60)
[2017-12-04] MEDS ORDERED: 0.9 % Sodium Chloride 1,000 ML IVC ONE (22:00)
[2017-12-04 22:07] LABS: Basophils # 0.3 K/mcL (0.0-0.2); Lymphocytes # 3.9 K/mcL (0.6-4.6); Neutrophils # 7.5 K/mcL (1.6-8.9); Platelet Estimate Normal (Normal)
[2017-12-04] MEDS ORDERED: Piperacillin/Tazobactam 3.375 GM in Water for inj. (sterile) 20 ML IVP ONE (22:20)
[2017-12-04 23:11] LABS: Bilirubin,Urine Negative (Negative); Blood,Urine Negative (Negative); Clarity,Urine Clear (Clear); Color,Urine Yellow (Yellow); Glucose,Urine (UA) Normal (Normal); Ketones,Urine Negative (Negative); Leukocyte Esterase,Urine Moderate (Negative); Nitrite,Urine Negative (Negative); Protein,Urine Negative (Neg-Trace); Urobilinogen,Urine Normal (Normal)
[2017-12-04 23:14] LABS: Bacteria,Urine None Seen per hpf (None-Few); Hyaline Casts,Urine None Seen per lpf (None-Few); Squamous Epithelial Cell,Urine Many per lpf (None-Few); WBC,Urine 0-3 per hpf (0-3)
[2017-12-04] MEDS ORDERED: Naloxone 0.4 MG/ML INJ IVP PRN (23:17)
[2017-12-04] MEDS ORDERED: Albuterol 2.5 MG/3 ML NEBULIZER IH PRN (23:17)
[2017-12-04] MEDS ORDERED: Water for inj. (sterile) 10 ML IV ONE (23:33)
--- NOTE | 2017-12-04 23:36 | Internal Med History&Physical ---
Date of Encounter: 12/04/17 Time of Encounter: 23:00 Assessment and Plan (1) Acute asthma exacerbation Current visit: Yes Status: Acute 1. Will treat with IV steroids, scheduled and PRN aerosols, and oxygen as needed. 2. Will monitor closely and intervene with aggressive pulmonary measures if necessary. 3. Likely exacerbated by recent Influenza. Qualifiers: Asthma severity: moderate Asthma persistence: persistent Qualified Code(s ): J45.41 - Moderate persistent asthma with (acute) exacerbation (2) Chest pain Current visit: Yes Status: Acute 1. Will trend troponins and EKG's. 2. Patient has history of CAD with prior intervention. 3. Possibly due to asthma exacerbation and/or suspected pneumonia. Qualifiers: Chest pain type: precordial pain Qualified Code(s): R07.2 - Precordial pain (3) Pneumonia Current visit: Yes Status: Suspected 1. CXR negative. 2. However, I suspect clinically she might have pneumonia given recent influenza and current asthma flare up. 3. Blood cultures drawn in ER. 4. Clinically, I do not feel she has sepsis. She received IVF bolus in ER. I will maintain her on IVF and trend Lactate. Qualifiers: Pneumonia type: due to unspecified organism Laterality: left Lung location: lower lobe of lung Qualified Code(s): J18.1 - Lobar pneumonia, unspecified organism (4) Lactic acidosis Current visit: Yes Status: Acute 1. Likely due to asthma exacerbation. 2. Will trend lactate. 3. Patient received IVF bolus in ER. 4. I do not feel she has sepsis clinically; however, will follow clinically and trend lactate levels. (5) DVT prophylaxis Current visit: No Status: Acute 1. Heparin SQ. Internal Medicine - H&P: HPI Chief complaint: cough, chest pain, fever Admitted From: Emergency Dept Plans for Post Hospital Care: Home History of present illness: Ms. Goddard is a 72 year old female who was hospitalized recently at [facility] in [place] and [facility] in [place] for influenza and complications thereof. She presents now with persistent coughing, wheezing, shortness of breath, chest pain, and subjective fever. History was obtained exclusively from daughter as patient suffers from dementia and is a poor historian. Patient was diagnosed with influenza roughly 3 weeks ago and was hospitalized at [facility] for several days. She was later hospitalized in [place] for similar symptoms including coughing, wheezing, shortness of breath, and subjective fever. Daughter states that she was never diagnosed with pneumonia. However, her asthma has been more difficult to control, and she has been coughing up more productive sputum and having subjective fevers. She has had no vomiting or diarrhea. She has occasionally been incontinent of stool and urine with her coughing paroxysms. Appetite and fluid intake have been diminished. She also has had some chest pain, which her daughter attributes to her asthma. However, patient does have a history of coronary artery disease and has had prior PCI and stent. Her EKG does suggest some lateral wall ischemia, but that is unchanged from prior EKGs. I saw patient in the ER, and she is unable to provide any history other than she is coughing and wheezing. She is pleasantly confused and disoriented. She recognizes her daughter and that she is in the hospital. She appears dehydrated and is audibly wheezing. She is not in any hemodynamic distress. She is having some [id number] respiratory distress, however. Past Med Surg Social Fam HX - Past Medical History Source: old records reviewed, obtained from family Medical history: asthma, atrial fibrillation, coronary artery disease, dementia , diabetes, hypertension Psychiatric history: anxiety, depression - Past Surgical History Surgical History: angioplasty/stent, cataract, hysterectomy - Social History Smoking Status: Never smoker Smokeless Tobacco Status: No Alcohol use: none Drug use: none Current living situation: Home, With Family Activity Level: Independent ambulation Recent Out of Country Travel Within the Last 8 Weeks: No - Family History Mother Hx Family Endocrine Disorder: Yes (diabetes) Internal Medicine - H&P: Meds Aspirin [Adult Low Dose Aspirin EC] 81 mg PO DAILY 10/12/15 [History] Citalopram [CeleXA] 40 mg PO DAILY 10/12/15 [History] Albuterol Sulfate [Proair Hfa] 2 puff IH Q4H PRN 02/28/17 [History] Donepezil [Aricept] 10 mg PO HS 02/28/17 [History] LORazepam [Ativan] 1 mg PO HS 02/28/17 [History] Omeprazole [PriLOSEC] 40 mg PO DAILY 02/28/17 [History] Acetaminophen [Tylenol Arthritis] 650 mg PO QAM AND QHS 07/23/17 [History] Ibuprofen [Motrin] 800 mg PO Q8HR 07/23/17 [History] LORazepam [Ativan] 0.5 mg PO QAM 07/23/17 [History] Nitroglycerin [Nitrostat] 0.4 mg SL Q5M PRN 07/23/17 [History] Ondansetron HCl [Zofran] 4 mg PO Q8H PRN 07/23/17 [History] Tramadol HCl [Ultram] 25 mg PO BID 07/23/17 [History] Tramadol HCl [Ultram] 50 mg PO HS 07/23/17 [History] Fluticasone/Salmeterol [Advair 250-50 Diskus] 1 each IH BID #1 blst.w.dev [Rx] GuaiFENesin ER [Mucinex] 600 mg PO BIDWM #10 tbbp.12hr 07/25/17 [Rx] Lactobacillus Acidophilus [Probiotic Acidophilus] 1 each PO DAILY #7 tablet 03/01 [Rx] Nitrofurantoin (BID) [Macrobid] 100 mg PO BID #14 capsule 10/19/17 [Rx] Amoxicillin/Clavulanate [Augmentin] 875 mg PO BIDWM 5 Days tablet 11/07/17 [Rx] Quetiapine Fumarate [Seroquel] 25 mg PO DAILY 11/14/17 [History] 3 Allergy/AdvReac Type Severity Reaction Status Date / Time codeine Allergy Anaphylaxis Verified 11/14/17 08:48 Sulfa (Sulfonamide Allergy Hives Verified 11/14/17 08:48 Antibiotics) ROS unobtainable: due to mental status Review of systems: obtained from daughter - Constitutional Constitutional: anorexia, fever(s), malaise, no chills - EENT Ears: no ear pain, no tinnitus Nose, mouth and throat: nasal congestion, no sore throat - Cardiovascular Cardiovascular ROS IM: chest pain, dyspnea, dyspnea on exertion, no syncope - Respiratory Respiratory: cough, dyspnea, wheezing, chest congestion, excessive phlegm production, change in phlegm color, pain with cough, no hemoptysis - Gastrointestinal Gastrointestinal: fecal incontinence, no abdominal pain, no diarrhea, no hematemesis, no hematochezia, no nausea, no vomiting - Genitourinary Genitourinary: urinary urgency, no dysuria - Musculoskeletal Musculoskeletal ROS IM: no atrophy, no back pain - Integumentary Integumentary IM: no rash, no jaundice - Neurological Neurological ROS: behavioral changes, no frequent falls - Psychiatric Psychiatric: memory loss, no anxiety, no depression - Endocrine Endocrine IM: no polydipsia, no polyuria - Allergic/Immunologic Allergic/Immunologic: wheezing, no GI upset with certain foods - Constitutional Vitals: Temp Pulse Resp BP Pulse Ox 99.0 F 84 20 156/80 99 12/04/17 20:32 12/04/17 20:32 12/04/17 20:32 12/04/17 20:32 12/04/17 20:32 General appearance: Present: cooperative, A&O X 1, mild distress (respiratory), pleasant. Absent: answers questions appropriately - Head Head exam: Present: atraumatic, normal inspection - Expanded Head Exam Head exam expanded: Absent: abrasion, contusion, general tenderness - Eye Eye exam: Present: EOMI, PERRL. Absent: scleral icterus Pupils: Present: normal accommodation - ENT ENT exam: Present: mucous membranes dry, normal exam, normal oropharynx - Neck Neck exam general surgery: Present: full ROM, supple. Absent: lymphadenopathy, tenderness, nuchal rigidity - Respiratory Respiratory exam: Present: accessory muscle use, prolonged expiratory phase, rales (left basilar), respiratory distress (moderate), wheezes (throughout), tachypnea. Absent: chest wall tenderness, CTAB, stridor - Cardiovascular Cardiovascular exam: Present: distant heart sounds, RRR, +S1, +S2. Absent: diastolic murmur, JVD, systolic murmur - GI/Abdominal GI/Abdominal exam: Present: normal bowel sounds, soft. Absent: guarding, hepatomegaly, mass, splenomegaly, tenderness - Extremities Exam Extremities exam: Present: full ROM, normal capillary refill, warm, radial pulses palpable and symmetrical. Absent: calf tenderness, joint swelling, pedal edema, tenderness - Back Exam Back exam: Absent: CVA tenderness (L), CVA tenderness (R) - Neurological Exam Neurological exam: Present: alert, CN II-XII intact, no focal deficits, strengths equal and symetr throughout. Absent: oriented X3 (x one) - Psychiatric Psychiatric exam: Present: normal affect, normal mood - Skin Skin exam: Present: dry, warm. Absent: rash Internal Med - H&P Results - Labs CBC & Chem 7: 12/04/17 21:32 12/04/17 21:32 Labs: Short CBC 12/04/17 Range/Units 21:32 WBC 12.9 H (4.3-11.1) K/mcL Hgb 11.5 (11.5-15.4) g/dL Hct 35.3 (35.3-44.9) % Plt Count 362 (140-400) K/mcL Neutrophils # 7.5 (1.6-8.9) K/mcL BMP 12/04/17 21:32 Sodium 145 Potassium 3.3 L Chloride 109 H Carbon Dioxide 25 BUN 12 Creatinine 0.92 Glucose 134 H Calcium 8.7 Cardiac Enzymes 12/04/17 Range/Units 21:32 Troponin I < 0.03 (< 0.04) ng/mL Urine 12/04/17 Range/Units 22:45 Urine Color Yellow (Yellow) Urine Clarity Clear (Clear) Urine pH 6.0 (5.0-8.0) pH Units Ur Specific [place] 1.020 (1.010-1.025) Urine Protein Negative (Neg-Trace) mg/dL Urine Glucose (UA) Normal (Normal) mg/dL - EKG Data -: EKG Interpreted by Myself EKG shows normal: sinus rhythm - EKG Data Prior EKG available for review: yes When compared to previous EKG: there is no significant change EKG comments: 12/04/17 23:40 NSR; lateral wall ischemia -- unchanged from prior EKG - Impressions ITS Impressions Chest X-Ray 12/04/17 20:57 IMPRESSION: Negative portable chest. D/ / Neo Ordaz MD / Neo Ordaz MD Interpreting Provider: Neo Ordaz MD - Diagnostic Studies Chest x-ray Status: image reviewed by me (negative for infiltrate)
[2017-12-04] MEDS ORDERED: Levofloxacin 750 MG/150 ML 750 MG/150 ML BAG IVPB SCH (23:45)
[2017-12-04] MEDS: Ipratropium/Albuterol Neb 3 ML IH SCH (23:55)
[2017-12-05] MEDS: 0.9 % Sodium Chloride w KCl 20 MEQ/1,000 ML MLS IVC SCH ×2 (01:16→11:20)
[2017-12-05] MEDS ORDERED: *HR* LORazepam 0.5 MG TABLET PO ONE (02:48)
[2017-12-05] MEDS ORDERED: *HR* LORazepam 0.5 MG TABLET ONE (03:08)
[2017-12-05] MEDS: Acetaminophen 325 MG TABLET PO PRN ×2 (03:43→15:45)
[2017-12-05] MEDS: Ipratropium/Albuterol Neb 3 ML IH SCH ×6 (04:30→23:31)
[2017-12-05] MEDS: *HR* Heparin 5,000 UNIT/ML VIAL SQ SCH ×2 (05:18→17:53)
[2017-12-05 06:01] LABS: Hematocrit 30.6 % (35.3-44.9); Hemoglobin 10.2 g/dL (11.5-15.4); Mean Corpuscular HGB Conc 33.3 g/dL (31.6-35.5); Mean Corpuscular Hemoglobin 26.3 pg (28.0-33.3); Mean Corpuscular Volume 78.9 fL (83.0-100.0); Mean Platelet Volume 10.5 fL (9.4-12.4); Platelet Count 317 K/mcL (140-400); Red Blood Count 3.88 M/mcL (3.82-4.97)
[2017-12-05 06:10] LABS: INR 1.1; Prothrombin Time 12.3 Seconds (9.4-12.1)
[2017-12-05 06:17] LABS: Activated Partial Thrombo Time 20.1 Seconds (26.0-36.0)
[2017-12-05 06:40] LABS: Bilirubin,Urine Negative (Negative); Blood,Urine Negative (Negative); Clarity,Urine Clear (Clear); Color,Urine Yellow (Yellow); Glucose,Urine (UA) Normal (Normal); Ketones,Urine Negative (Negative); Leukocyte Esterase,Urine Negative (Negative); Nitrite,Urine Negative (Negative); Protein,Urine Negative (Neg-Trace); Specific Gravity,Urine 1.012 (1.010-1.025); Urobilinogen,Urine Normal (Normal)
[2017-12-05 06:46] LABS: Eosinophils # 0.5 K/mcL (0.0-0.6); Lymphocytes # 3.3 K/mcL (0.6-4.6); Monocytes # 1.3 K/mcL (0.0-1.3); Neutrophils # 7.5 K/mcL (1.6-8.9); Platelet Estimate Normal (Normal); Reactive Lymphocytes Present (Not Present)
[2017-12-05 06:47] LABS: Alanine Aminotransferase 10 Units/L (7-52); Albumin 3.3 g/dL (3.5-5.7); Albumin/Globulin Ratio 1.1 (1.1-2.2); Alkaline Phosphatase 42 Units/L (34-104); Aspartate Amino Transferase 30 Units/L (13-39); BUN/Creatinine Ratio 14 (6-26); Bilirubin,Total 0.3 mg/dL (0.3-1.0); Blood Urea Nitrogen 13 mg/dL (8-23); Calcium 8.3 mg/dL (8.6-10.3); Carbon Dioxide 20 mEq/L (23-29); Chloride 109 mEq/L (98-107); Globulin 3.1 g/dL (2.4-3.5); Glucose 113 mg/dL (70-105); Magnesium 1.7 mg/dL (1.6-2.6); Osmolality,Calculated 291 (280-300); Potassium 3.7 mEq/L (3.5-5.1); Sodium 140 mEq/L (136-145); Total Protein 6.4 g/dL (6.4-8.9); eGFR For African Americans > 60 (> 60); eGFR For Non-African Americans 59 (> 60)
[2017-12-05] MEDS: Budesonide/Formoterol 80/4.5 MDI IH SCH ×2 (07:38→20:09)
[2017-12-05] MEDS: Aspirin Enteric Coated 81 MG Tablet PO SCH (08:58)
[2017-12-05] MEDS ORDERED: Nitroglycerin 0.4 MG TAB.SUBL SL PRN (11:37)
[2017-12-05] MEDS: Divalproex Sodium 125 MG CAPSULE PO SCH ×3 (12:20→20:46)
[2017-12-05] MEDS: GuaiFENesin Liq 200 MG/10 ML UDC PO SCH ×3 (12:57→22:46)
[2017-12-05] MEDS: Lactobacillus 1 EACH CAP.SPRINK PO SCH (12:57)
[2017-12-05] MEDS: Rivastigmine Patch 9.5 MG PATCH.TD24 TD SCH (12:57)
[2017-12-05] MEDS: Artificial Tears SOLN 15 ML BOTTLE OP SCH (12:59)
--- NOTE | 2017-12-05 15:44 | Internal Med Progress Note ---
Date of Encounter: 12/05/17 Time of Encounter: 15:32 - Assessment and plan (1) Acute asthma exacerbation Current Visit: Yes Status: Acute Assessment and plan: Continue IV steroids Continue duonebs and albuterol scheduled and PRN Oxygen as needed. Likely exacerbated by recent Influenza Qualifiers: Asthma severity: moderate Asthma persistence: persistent Qualified Code(s ): J45.41 - Moderate persistent asthma with (acute) exacerbation (2) Lactic acidosis Current Visit: Yes Status: Resolved Assessment and plan: Lactic acid 4.2 initially and then rechecked at 1.4 after fluid bolus (3) Pneumonia Current Visit: Yes Status: Suspected Assessment and plan: Chest x-ray was negative Recent influenza and current asthma flareup may be secondary to pneumonia. Blood cultures are pending She is not septic. She did receive an IV fluid bolus in the ER and lactate normalized. Qualifiers: Pneumonia type: due to unspecified organism Laterality: left Lung location: lower lobe of lung Qualified Code(s): J18.1 - Lobar pneumonia, unspecified organism (4) DVT prophylaxis Current Visit: No Status: Acute Assessment and plan: heparin subcut - Subjective Interval history: Throughout the exam. The daughter was at the bedside and provided her history which is not feeling well for 5 days with increasing cough and sputum production , iIncreased weakness and just not herself. The patient was discharged from [facility] about 2 weeks ago from the psychiatric behavioral unit and was positive for the flu at that time. She took her home and then she was not doing well and she took her to [place] to the hospital there and she was in overnight. Was discharged the next morning which was about 5 days ago. She just felt that her mother needed more aggressive care. - Constitutional Vitals: Temp Pulse Resp BP Pulse Ox 98.8 F 84 16 172/82 98 12/05/17 15:17 12/05/17 15:17 12/05/17 15:17 12/05/17 15:17 12/05/17 15:17 General appearance: Present: cooperative, A&O X 1, mild distress (respiratory), pleasant. Absent: answers questions appropriately - Head Head exam: Present: atraumatic, normocephalic - Eye Eye exam: Present: PERRL, conjuntiva pink, sclera anicteric Pupils: Present: PERRL - Neck Neck exam general surgery: Present: supple, trachea midline. Absent: lymphadenopathy - Respiratory Respiratory exam: Present: decreased breath sounds, rhonchi, wheezes. Absent: accessory muscle use, rales Additional comments: Bronchospasm on forced expiration - Cardiovascular Cardiovascular exam: Present: RRR, +S1, +S2. Absent: diastolic murmur, gallop, rubs, systolic murmur - GI/Abdominal GI/Abdominal exam: Present: normal bowel sounds, soft, no peritoneal signs. Absent: distended, tenderness - Extremities Exam Extremities exam: Present: warm, radial pulses palpable and symmetrical. Absent : calf tenderness, cyanotic, pedal edema - Neurological Exam Neurological exam: Present: alert, CN II-XII intact, no focal deficits. Absent : pronater drift, facial droop, speech deficit - Skin Skin exam: Present: dry, intact, warm Internal Medicine: Result - Labs CBC & Chem 7: 12/05/17 05:37 12/05/17 05:37 Labs: Short CBC 12/05/17 Range/Units 05:37 WBC 12.5 H (4.3-11.1) K/mcL Hgb 10.2 L (11.5-15.4) g/dL Hct 30.6 L (35.3-44.9) % Plt Count 317 (140-400) K/mcL Neutrophils # 7.5 (1.6-8.9) K/mcL BMP 12/05/17 05:37 Sodium 140 Potassium 3.7 Chloride 109 H Carbon Dioxide 20 L BUN 13 Creatinine 0.93 Glucose 113 H Calcium 8.3 L Cardiac Enzymes 12/05/17 12/05/17 Range/Units 05:37 09:08 Troponin I < 0.03 < 0.03 (< 0.04) ng/mL Liver Function 12/05/17 Range/Units 05:37 Total Bilirubin 0.3 (0.3-1.0) mg/dL AST 30 (13-39) Units/L ALT 10 (7-52) Units/L Alkaline Phosphatase 42 (34-104) Units/L Albumin 3.3 L (3.5-5.7) g/dL Urine 12/05/17 Range/Units 06:00 Urine Color Yellow (Yellow) Urine Clarity Clear (Clear) Urine pH 7.0 (5.0-8.0) pH Units Ur Specific [place] 1.012 (1.010-1.025) Urine Protein Negative (Neg-Trace) mg/dL Urine Glucose (UA) Normal (Normal) mg/dL - ABG Interpretation ABG results: PT/INR, D-dimer PT 12.3 Seconds (9.4-12.1) H 12/05/17 05:37 Consult Discharge Plan - Plan Referrals: Flores Hernández, RAE [Primary Care Provider] -
[2017-12-05] MEDS: MethylPREDNISolone 40 MG/ML VIAL IVP SCH ×2 (15:45→20:46)
[2017-12-05 17:07] LABS: Adenovirus Not Detected (Not Detect); Bordetella Pertussis Not Detected (Not Detect); Chlamydophila pneumoniae Not Detected (Not Detect); Coronavirus 229E Not Detected (Not Detect); Coronavirus HKU1 Not Detected (Not Detect); Coronavirus NL63 Not Detected (Not Detect); Coronavirus OC43 Not Detected (Not Detect); Human Metapneumovirus Not Detected (Not Detect); Human Rhinovirus/Enterovirus Not Detected (Not Detect); Influenza A Subtype 2009 H1 Not Detected (Not Detect); Influenza A Untypeable Not Detected (Not Detect); Influenza B Not Detected (Not Detect); Mycoplasma pneumoniae Not Detected (Not Detect); Parainfluenza Virus 1 Not Detected (Not Detect); Parainfluenza Virus 2 Not Detected (Not Detect); Parainfluenza Virus 3 Not Detected (Not Detect); Parainfluenza Virus 4 Not Detected (Not Detect); Respiratory Syncytial Virus Not Detected (Not Detect)
[2017-12-05] MEDS: *HR* LORazepam 0.5 MG TABLET PO SCH (20:46)
[2017-12-05] MEDS: Acetaminophen 325 MG TABLET PO SCH (20:46)
[2017-12-05] MEDS: Benzonatate 100 MG CAPSULE PO PRN (20:56)
[2017-12-06] MEDS: Ipratropium/Albuterol Neb 3 ML IH SCH ×6 (03:42→23:22)
[2017-12-06 04:35] LABS: Basophils # 0.1 K/mcL (0.0-0.2); Basophils % 0.9 %; Hematocrit 34.2 % (35.3-44.9); Hemoglobin 11.4 g/dL (11.5-15.4); Immature Granulocytes % 9.5 % (0-4); Lymphocytes % 14.9 %; Mean Corpuscular HGB Conc 33.3 g/dL (31.6-35.5); Mean Corpuscular Volume 78.1 fL (83.0-100.0); Mean Platelet Volume 9.7 fL (9.4-12.4); Monocytes # 0.5 K/mcL (0.0-1.3); Monocytes % 3.5 %; Neutrophils # 9.4 K/mcL (1.6-8.9); Platelet Count 355 K/mcL (140-400); Red Blood Count 4.38 M/mcL (3.82-4.97); Red Cell Distribution Width 12.3 % (11.5-14.5); Segmented Neutrophils % 71.2 %
[2017-12-06 04:53] LABS: BUN/Creatinine Ratio 17 (6-26); Blood Urea Nitrogen 14 mg/dL (8-23); Calcium 8.9 mg/dL (8.6-10.3); Carbon Dioxide 22 mEq/L (23-29); Chloride 109 mEq/L (98-107); Glucose 158 mg/dL (70-105); Osmolality,Calculated 298 (280-300); Potassium 3.5 mEq/L (3.5-5.1); Sodium 142 mEq/L (136-145); eGFR For African Americans > 60 (> 60); eGFR For Non-African Americans > 60 (> 60)
[2017-12-06] MEDS: GuaiFENesin Liq 200 MG/10 ML UDC PO SCH ×4 (05:08→22:53)
[2017-12-06] MEDS: MethylPREDNISolone 40 MG/ML VIAL IVP SCH ×4 (05:08→20:02)
[2017-12-06] MEDS: *HR* Heparin 5,000 UNIT/ML VIAL SQ SCH ×2 (05:08→17:39)
[2017-12-06] MEDS: Benzonatate 100 MG CAPSULE PO PRN (05:18)
[2017-12-06] MEDS: Acetaminophen 325 MG TABLET PO PRN (05:18)
[2017-12-06 05:22] LABS: Platelet Estimate Normal (Normal)
[2017-12-06] MEDS: Budesonide/Formoterol 80/4.5 MDI IH SCH ×2 (07:58→20:11)
[2017-12-06] MEDS: Divalproex Sodium 125 MG CAPSULE PO SCH ×3 (08:30→20:00)
[2017-12-06] MEDS: Artificial Tears SOLN 15 ML BOTTLE OP SCH (08:30)
[2017-12-06] MEDS: Aspirin Enteric Coated 81 MG Tablet PO SCH (08:30)
[2017-12-06] MEDS: *HR* LORazepam 0.5 MG TABLET PO SCH ×2 (08:31→20:01)
[2017-12-06] MEDS: Acetaminophen 325 MG TABLET PO SCH ×2 (08:31→20:01)
[2017-12-06] MEDS: Lactobacillus 1 EACH CAP.SPRINK PO SCH (08:31)
[2017-12-06] MEDS: Rivastigmine Patch 9.5 MG PATCH.TD24 TD SCH (08:32)
--- NOTE | 2017-12-06 14:47 | Internal Med Progress Note ---
Date of Encounter: 12/06/17 Time of Encounter: 14:45 - Assessment and plan (1) Acute asthma exacerbation Current Visit: Yes Status: Acute Assessment and plan: Continue IV steroids Continue duonebs and albuterol scheduled /PRN Oxygen as needed. Likely exacerbated by recent Influenza Respiratory infection panel negative Qualifiers: Asthma severity: moderate Asthma persistence: persistent Qualified Code(s ): J45.41 - Moderate persistent asthma with (acute) exacerbation (2) Lactic acidosis Current Visit: Yes Status: Resolved Assessment and plan: Lactic acid 4.2 initially and rechecked at 1.4 after fluid bolus (3) Pneumonia Current Visit: Yes Status: Suspected Assessment and plan: Chest x-ray negative Recent influenza and current asthma flareup may be secondary to pneumonia. Blood cultures preliminary reading negative Slight white count elevation 80 secondary to steroids Continue Levaquin She is not septic. She did receive an IV fluid bolus in the ER and lactate normalized. Qualifiers: Pneumonia type: due to unspecified organism Laterality: left Lung location: lower lobe of lung Qualified Code(s): J18.1 - Lobar pneumonia, unspecified organism (4) DVT prophylaxis Current Visit: Yes Status: Acute Assessment and plan: heparin subcut - Subjective Interval history: On rounds the patient was sitting up decide the bed eating her breakfast. She was cooperative and pleasant. She denied any complaints. She states she is feeling little better her daughter was marking her menu and stated she was not Hearon night but she thinks her mother did not sleep. She states she continues to have a coarse cough but sounds better than yesterday. Her voice she thinks is a little stronger. I walked by about 15 minutes later multiple family members were seen outside her room crying. The patient herself was sitting in the bed distraught and crying. They got word that her brother was found unresponsive at home is being brought to the hospital. Emotional support offered - Constitutional Vitals: Temp Pulse Resp BP Pulse Ox 97.6 F 99 16 164/78 97 12/06/17 11:12 12/06/17 11:12 12/06/17 11:32 12/06/17 11:12 12/06/17 11:32 General appearance: Present: cooperative, A&O X 1, mild distress (respiratory), pleasant. Absent: answers questions appropriately - Head Head exam: Present: atraumatic, normocephalic - Eye Eye exam: Present: PERRL, conjuntiva pink, sclera anicteric Pupils: Present: PERRL - Neck Neck exam general surgery: Present: supple, trachea midline. Absent: lymphadenopathy - Respiratory Respiratory exam: Present: decreased breath sounds, CTAB, prolonged expiratory phase, wheezes. Absent: accessory muscle use, rales, rhonchi Additional comments: Course cough on forced expiration, voice is still slightly hoarse but improved strength and volume from yesterday - Cardiovascular Cardiovascular exam: Present: RRR, +S1, +S2. Absent: diastolic murmur, gallop, rubs, systolic murmur - GI/Abdominal GI/Abdominal exam: Present: normal bowel sounds, soft, no peritoneal signs. Absent: distended, tenderness - Extremities Exam Extremities exam: Present: warm, radial pulses palpable and symmetrical. Absent : calf tenderness, cyanotic, pedal edema - Neurological Exam Neurological exam: Present: CN II-XII intact, oriented X3, no focal deficits. Absent: pronater drift, facial droop, speech deficit - Skin Skin exam: Present: dry, intact, warm Internal Medicine: Result - Labs CBC & Chem 7: 12/06/17 04:14 12/06/17 04:14 Labs: Short CBC 12/06/17 Range/Units 04:14 WBC 13.2 H (4.3-11.1) K/mcL Hgb 11.4 L (11.5-15.4) g/dL Hct 34.2 L (35.3-44.9) % Plt Count 355 (140-400) K/mcL Neutrophils # 9.4 H (1.6-8.9) K/mcL BMP 12/06/17 04:14 Sodium 142 Potassium 3.5 Chloride 109 H Carbon Dioxide 22 L BUN 14 Creatinine 0.83 Glucose 158 H Calcium 8.9 - ABG Interpretation ABG results: PT/INR, D-dimer PT 12.3 Seconds (9.4-12.1) H 12/05/17 05:37 Consult Discharge Plan - Plan Referrals: Flores Hernández CNP [Primary Care Provider] -
[2017-12-06] MEDS ORDERED: levoFLOXacin 750 MG TABLET PO SCH (15:00)
--- NOTE | 2017-12-06 15:24 | Electrocardiograph Report ---
[address] [place] [address] Test Date: 2017-12-05 Pat Name: Shavonne Goddard Department: 113 Room: 3B Gender: F Flexible Nanny: : 1945 Requested By: Gopi Villagran Order Number: [id number] Reading MD: Constanza Dee Measurements Intervals [place] Rate: 71 P: 61 MO: 161 QRS: 6 QRSD: 73 T: 44 QT: 361 QTc: 383 Interpretive Statements SINUS RHYTHM NONSPECIFIC ST-T WAVE ABNORMALITY Electronically Signed On 12-06-2017 15:22:53 EST by Constanza Dee
--- NOTE | 2017-12-06 16:15 | Electrocardiograph Report ---
[address] [place] [address] Test Date: 2017-12-04 Pat Name: Shavonne Goddard Department: 104 Room: 3B34 Gender: F Health Information Assistant: CIRILO : 1945 Requested By: Nathalie Morrissey Order Number: [id number] Reading MD: Constanza Dee Measurements Intervals [place] Rate: 80 P: 55 MI: 147 QRS: -1 QRSD: 86 T: -29 QT: 382 QTc: 418 Interpretive Statements SINUS RHYTHM ST DEVIATION AND MODERATE T-WAVE ABNORMALITY, CONSIDER LATERAL ISCHEMIA Electronically Signed On 12-06-2017 16:13:32 EST by Constanza Dee
[2017-12-07] MEDS ORDERED: ALPRAZolam 0.25 MG TABLET PO ONE (01:07)
[2017-12-07] MEDS: Ipratropium/Albuterol Neb 3 ML IH SCH ×6 (03:20→23:33)
[2017-12-07] MEDS ORDERED: Levofloxacin 750 MG/150 ML 750 MG/150 ML BAG IVPB SCH (04:00)
[2017-12-07 04:33] LABS: Hemoglobin 10.7 g/dL (11.5-15.4); Immature Platelets 2.8 % (1.1-6.1); Mean Corpuscular HGB Conc 33.4 g/dL (31.6-35.5); Mean Corpuscular Hemoglobin 26.4 pg (28.0-33.3); Mean Corpuscular Volume 78.8 fL (83.0-100.0); Red Blood Count 4.06 M/mcL (3.82-4.97); Red Cell Distribution Width 12.7 % (11.5-14.5)
[2017-12-07 04:52] LABS: BUN/Creatinine Ratio 28 (6-26); Blood Urea Nitrogen 24 mg/dL (8-23); Calcium 8.8 mg/dL (8.6-10.3); Carbon Dioxide 22 mEq/L (23-29); Chloride 107 mEq/L (98-107); Glucose 142 mg/dL (70-105); Osmolality,Calculated 300 (280-300); Potassium 3.6 mEq/L (3.5-5.1); Sodium 142 mEq/L (136-145); eGFR For African Americans > 60 (> 60); eGFR For Non-African Americans > 60 (> 60)
[2017-12-07] MEDS: *HR* Heparin 5,000 UNIT/ML VIAL SQ SCH ×2 (04:57→17:10)
[2017-12-07] MEDS: GuaiFENesin Liq 200 MG/10 ML UDC PO SCH ×4 (04:57→23:51)
[2017-12-07] MEDS: MethylPREDNISolone 40 MG/ML VIAL IVP SCH ×4 (04:58→20:32)
[2017-12-07] MEDS: Budesonide/Formoterol 80/4.5 MDI IH SCH ×2 (07:47→20:09)
[2017-12-07] MEDS: Artificial Tears SOLN 15 ML BOTTLE OP SCH (09:09)
[2017-12-07] MEDS: Aspirin Enteric Coated 81 MG Tablet PO SCH (09:10)
[2017-12-07] MEDS: Divalproex Sodium 125 MG CAPSULE PO SCH ×3 (09:10→20:33)
[2017-12-07] MEDS: *HR* LORazepam 0.5 MG TABLET PO SCH ×2 (09:10→20:34)
[2017-12-07] MEDS: Acetaminophen 325 MG TABLET PO SCH ×2 (09:10→20:33)
[2017-12-07] MEDS: Rivastigmine Patch 9.5 MG PATCH.TD24 TD SCH (09:11)
[2017-12-07] MEDS: Lactobacillus 1 EACH CAP.SPRINK PO SCH (09:15)
--- NOTE | 2017-12-07 14:37 | Internal Med Progress Note ---
Date of Encounter: 12/07/17 Time of Encounter: 14:30 - Assessment and plan (1) Acute asthma exacerbation Current Visit: Yes Status: Acute Assessment and plan: Still with wheezes and bronchospasm on forced expiration Spoke with pulmonology and they will see her today Continue IV steroids Continue duonebs + albuterol scheduled /PRN Oxygen as needed. Likely exacerbated by recent Influenza Respiratory infection panel negative Qualifiers: Asthma severity: moderate Asthma persistence: persistent Qualified Code(s ): J45.41 - Moderate persistent asthma with (acute) exacerbation (2) Lactic acidosis Current Visit: Yes Status: Resolved Assessment and plan: Lactic acid 4.2 initially, rechecked at 1.4 after fluid bolus (3) Pneumonia Current Visit: Yes Status: Suspected Assessment and plan: Chest x-ray reviewed as negative Recent influenza and current asthma flareup may be secondary to pneumonia. Blood cultures preliminary reading negative Slight white count elevation may be secondary to steroids Continue Levaquin She is not septic. She did receive an IV fluid bolus in the ER and lactate normalized. Qualifiers: Pneumonia type: due to unspecified organism Laterality: left Lung location: lower lobe of lung Qualified Code(s): J18.1 - Lobar pneumonia, unspecified organism (4) DVT prophylaxis Current Visit: Yes Status: Acute Assessment and plan: heparin subcutaneous - Subjective Interval history: The patient was sitting up in chair eating breakfast. She stated she is having a better morning. On exam she still very bronchospastic with a harsh nonproductive cough. Explained I maxed out the treatment options at this point so I will ask pulmonology to come by and see her. She is in agreement with that. She shared that she has very sad heart secondary to losing multiple family members lately. She became a little tearful. Emotional support was offered. She denies chest pain, shortness of breath, abdominal pain or discomfort, nausea, fevers or chills or night sweats. - Constitutional Vitals: Temp Pulse Resp BP Pulse Ox 98.3 F 64 16 145/73 97 12/07/17 11:10 12/07/17 11:10 12/07/17 11:10 12/07/17 11:10 12/07/17 11:10 General appearance: Present: cooperative, A&O X 1, A&O X 2, mild distress ( respiratory), pleasant. Absent: answers questions appropriately - Head Head exam: Present: atraumatic, normocephalic - Eye Eye exam: Present: PERRL, conjuntiva pink, sclera anicteric Pupils: Present: PERRL - Neck Neck exam general surgery: Present: supple, trachea midline. Absent: lymphadenopathy - Respiratory Respiratory exam: Present: CTAB. Absent: accessory muscle use, rales, rhonchi, wheezes - Cardiovascular Cardiovascular exam: Present: RRR, +S1, +S2. Absent: diastolic murmur, gallop, rubs, systolic murmur - GI/Abdominal GI/Abdominal exam: Present: normal bowel sounds, soft, no peritoneal signs. Absent: distended, tenderness - Extremities Exam Extremities exam: Present: pedal edema, warm, radial pulses palpable and symmetrical. Absent: calf tenderness, cyanotic Additional comments: trace lower ext edema - Neurological Exam Neurological exam: Present: CN II-XII intact, oriented X3, no focal deficits. Absent: pronater drift, facial droop, speech deficit - Skin Skin exam: Present: dry, intact, normal color, warm Internal Medicine: Result - Labs CBC & Chem 7: 12/07/17 03:26 12/07/17 03:26 Labs: Short CBC 12/07/17 Range/Units 03:26 WBC 22.2 H D (4.3-11.1) K/mcL Hgb 10.7 L (11.5-15.4) g/dL Hct 32.0 L (35.3-44.9) % Plt Count 415 H (140-400) K/mcL BMP 12/07/17 03:26 Sodium 142 Potassium 3.6 Chloride 107 Carbon Dioxide 22 L BUN 24 H Creatinine 0.86 Glucose 142 H Calcium 8.8 - ABG Interpretation ABG results: PT/INR, D-dimer PT 12.3 Seconds (9.4-12.1) H 12/05/17 05:37 Consult Discharge Plan - Plan Referrals: Flores Hernández CNP [Primary Care Provider] - 12/12/17 1:00 pm
--- NOTE | 2017-12-07 15:15 | Pulmonology Consult Note ---
Date of Encounter: 12/07/17 Time of Encounter: 02:30 Assessment and Plan (1) Acute asthma exacerbation Current Visit: Yes Status: Acute Patient has asthma exacerbation complicated by recent influenza infection . Patient when ready for discharge should go on a prolong 3 weeks steroid taper . Will need Albuterol nebulizer , Symbicort BID . Will need 14 days course of Levofloxacin for her sinus infection with post nasal drip which is triggering her recurrent asthma exacerbation . Will need 6-8 weeks follow up in Pulmonary Clinic . Qualifiers: Asthma severity: moderate Asthma persistence: persistent Qualified Code(s ): J45.41 - Moderate persistent asthma with (acute) exacerbation (2) Chronic sinusitis Current Visit: Yes Status: Acute The post nasal drip due to chronic sinusitis will need 14 day course of Levofloxacin . Qualifiers: Sinusitis location: maxillary Qualified Code(s): J32.0 - Chronic maxillary sinusitis (3) Post-viral cough syndrome Current Visit: Yes Status: Acute Patient had a recent flu infection the severe persistent cough if it is persistent she can go one prescription of Hydrocodone -Homoatropine with no refills . Otherwise current cough regimen is decent . The Whole plan was discussed with Primary team. History of Present Illness Consult date: 12/07/17 Requesting physician: Yissel Muñoz Reason for consult: cough, asthma Chief complaint: Shortness of breadth Cough and wheezing History of present illness: 72 year old female admitted to [facility] for recurrent asthma exacerbation patient was recently admitted to [facility] and [facility] for the same symptoms but during one of the previous admissions found to have Influenza infection patient says before cough and wheezing got worse she had lot of sinus congestion with post nasal drip worsened her asthma symptoms patient says her shortness of breadth , wheezing is better she has the persistent cough , denies any chest pain or tightness , denies any palpitations or syncope , denies any GERD , denies any neurological symptoms . Pulmonary was consulted for persistent cough with some frequent exacerbation of asthma . Past Med Surg Social Fam HX - Past Medical History Medical history: asthma, coronary artery disease, dementia, diabetes, hypertension Psychiatric history: anxiety, depression - Past Surgical History Surgical History: angioplasty/stent, cataract, hysterectomy - Social History Smoking Status: Never smoker Smokeless Tobacco Status: No Alcohol use: none Drug use: none - Family History Mother Hx Family Endocrine Disorder: Yes (diabetes) Medications and Allergies Aspirin [Adult Low Dose Aspirin EC] 81 mg PO DAILY 10/12/15 [History] Albuterol Sulfate [Proair Hfa] 2 puff IH Q4H PRN 02/28/17 [History] Omeprazole [PriLOSEC] 40 mg PO DAILY 02/28/17 [History] Acetaminophen [Tylenol Arthritis] 650 mg PO QAM AND QHS 07/23/17 [History] Ibuprofen [Motrin] 800 mg PO Q8HR 07/23/17 [History] LORazepam [Ativan] 0.5 mg PO BID 07/23/17 [History] Nitroglycerin [Nitrostat] 0.4 mg SL Q5M PRN 07/23/17 [History] Lactobacillus Acidophilus [Probiotic Acidophilus] 1 each PO DAILY #7 tablet 03/01 [Rx] Quetiapine Fumarate [Seroquel] 12.5 mg PO BID 11/14/17 [History] Benzonatate [Tessalon] 100 mg PO TID PRN 12/05/17 [History] Dextran 70/Hypromellose [Natural Balance Tears Eye Drop] 15 ml OP DAILY [History] Divalproex Sodium [Depakote Sprinkle] 250 mg PO TID 12/05/17 [History] Docusate [Colace] 100 mg PO DAILY 12/05/17 [History] GuaiFENesin Liq [Robitussin Liq] 200 mg PO Q6HR 12/05/17 [History] Ipratropium/Albuterol Neb [Duoneb] 3 ml IH Q6HR 12/05/17 [History] Promethazine [Phenergan] 25 mg PO Q8HR 12/05/17 [History] Quetiapine Fumarate [SEROquel] 100 mg PO HS 12/05/17 [History] Rivastigmine 9.5 mg TD DAILY 12/05/17 [History] Sertraline [Zoloft] 25 mg PO DAILY 12/05/17 [History] Simvastatin [Zocor] 20 mg PO HS 12/05/17 [History] 3 Allergy/AdvReac Type Severity Reaction Status Date / Time codeine Allergy Anaphylaxis Verified 11/14/17 08:48 Sulfa (Sulfonamide Allergy Hives Verified 11/14/17 08:48 Antibiotics) All Systems: The remainder of the systems were reviewed and are negative Physical Examination Auscultation: bilateral: clear Results - Laboratory Findings CBC and BMP: 12/07/17 03:26 12/07/17 03:26 PT/INR, D-dimer PT 12.3 Seconds (9.4-12.1) H 12/05/17 05:37 Abnormal lab findings: Abnormal lab results WBC 22.2 K/mcL (4.3-11.1) H D 12/07/17 03:26 Hgb 10.7 g/dL (11.5-15.4) L 12/07/17 03:26 Hct 32.0 % (35.3-44.9) L 12/07/17 03:26 MCV 78.8 fL (83.0-100.0) L 12/07/17 03:26 MCH 26.4 pg (28.0-33.3) L 12/07/17 03:26 Plt Count 415 K/mcL (140-400) H 12/07/17 03:26 Immature Gran % 9.5 % (0-4) H 12/06/17 04:14 Neutrophils # 9.4 K/mcL (1.6-8.9) H 12/06/17 04:14 Reactive Lymphocytes Present (Not Present) A 12/05/17 05:37 PT 12.3 Seconds (9.4-12.1) H 12/05/17 05:37 APTT 20.1 Seconds (26.0-36.0) L 12/05/17 05:37 Carbon Dioxide 22 mEq/L (23-29) L 12/07/17 03:26 BUN 24 mg/dL (8-23) H 12/07/17 03:26 BUN/Creatinine Ratio 28 (6-26) H 12/07/17 03:26 Glucose 142 mg/dL (70-105) H 12/07/17 03:26 POC Glucose 172 (58-89) H 12/06/17 20:25 B-Natriuretic Peptide 190 pg/mL (Less than 100) H 12/04/17 21:32 Albumin 3.3 g/dL (3.5-5.7) L 12/05/17 05:37 Ur Squamous Epith Cells Many per lpf (None-Few) H 12/04/17 22:45 - Microbiology Findings Microbiology Findings: Microbiology, Last 48 Hours 12/05/17 11:50 Streptococcus pneumoniae Antigen (M - Final Urine,Random-Not Preferred 12/05/17 06:00 Urine Culture - Final Urine,Catheterized No growth. 12/04/17 23:45 Blood Culture - Preliminary Peripheral Venipuncture No growth. 12/05/17 15:31 Legionella Antigen - Final Urine,Clean Catch - Clinical Findings Intake & Output: Intake & Output 12/06/17 12/07/17 12/07/17 23:59 07:59 15:59 Intake Total 360 / 360 Balance 360 / 360 Weight 77.564 kg Consult Discharge Plan - Plan Referrals: Flores Hernández CNP [Primary Care Provider] - 12/12/17 1:00 pm
[2017-12-08] MEDS: MethylPREDNISolone 40 MG/ML VIAL IVP SCH ×2 (02:50→08:45)
[2017-12-08] MEDS: Ipratropium/Albuterol Neb 3 ML IH SCH ×3 (04:05→11:12)
[2017-12-08] MEDS: GuaiFENesin Liq 200 MG/10 ML UDC PO SCH ×2 (06:31→12:00)
[2017-12-08] MEDS: *HR* Heparin 5,000 UNIT/ML VIAL SQ SCH (06:32)
[2017-12-08] MEDS: Budesonide/Formoterol 80/4.5 MDI IH SCH (08:15)
[2017-12-08] MEDS: *HR* LORazepam 0.5 MG TABLET PO SCH (08:45)
[2017-12-08] MEDS: Artificial Tears SOLN 15 ML BOTTLE OP SCH (08:45)
[2017-12-08] MEDS: Acetaminophen 325 MG TABLET PO SCH (08:46)
[2017-12-08] MEDS: Lactobacillus 1 EACH CAP.SPRINK PO SCH (08:46)
[2017-12-08] MEDS: Divalproex Sodium 125 MG CAPSULE PO SCH ×2 (08:46→15:31)
[2017-12-08] MEDS: Aspirin Enteric Coated 81 MG Tablet PO SCH (08:46)
[2017-12-08] MEDS: Rivastigmine Patch 9.5 MG PATCH.TD24 TD SCH (08:46)
--- NOTE | 2017-12-08 11:38 | Discharge Summary ---
- NOTES TO OUTPATIENT PROVIDER Notes to Outpatient Provider: Patient when he close follow-up with her primary care physician. Family is concerned about her mental status and she may require referral for further outpatient psychiatric evaluation. Pulmonary saw the patient during her stay and diagnosed her with an acute asthma exacerbation and chronic sinusitis. She also has a postviral cough syndrome. She will be sent home on a limited prescription of hydrocodone with no refills she will need follow-up with pulmonary in 6-8 weeks. She will be treated with a prolonged 3 week steroid taper, albuterol nebulizer Symbicort twice a day and a 14 day course of Levaquin Levaquin for her sinus infection. Orders not resulted at time of discharge: Pending orders 12/05/17 11:49 Sputum Culture [Culture,Sputum with Gram Stain] [] Routine 12/05/17 12:20 Mycoplasma pneumoniae IgG IgM Routine Date of Encounter: 12/08/17 Time of Encounter: 11:31 - Discharge Diagnosis (1) Acute asthma exacerbation Priority: Primary Status: Acute Comments: 72 year old female admitted to [facility] for recurrent cough and generalized weakness ,not feeling well. She was recently admitted to [facility] and [facility] for the same symptoms but during one of the previous admissions found to have Influenza infection. Patient had cough and wheezing and sinus congestion with post nasal drip which worsened her asthma symptoms and her shortness of breadth.Wheezing is better but she has the persistent bronchospastic cough., Pulmonary was consulted and per their note: Patient has asthma exacerbation complicated by recent influenza infection . Patient will be discharged on a prolonged 3 weeks steroid taper,Albuterol nebulizer, Symbicort BID and 14 days course of Levofloxacin for her sinus infection with post nasal drip which is triggering her recurrent asthma exacerbation . Will need 6-8 weeks follow up in Pulmonary Clinic . Qualifiers: Asthma severity: moderate Asthma persistence: persistent Qualified Code(s ): J45.41 - Moderate persistent asthma with (acute) exacerbation (2) Lactic acidosis Priority: Primary Status: Resolved Comments: Lactic acid 4.2 initially, was given fluid bolus and rechecked at 1.4 patient was not septic (3) Chronic sinusitis Priority: Primary Status: Acute Comments: post nasal drip due to chronic sinusitis will need 14 day course of Levofloxacin . Qualifiers: Sinusitis location: maxillary Qualified Code(s): J32.0 - Chronic maxillary sinusitis (4) Post-viral cough syndrome Priority: Primary Status: Acute Comments: patient had a recent flu infection with severe persistent cough, provide one prescription of Hydrocodone -Homoatropine with no refills - Patient allergic, not provided. (5) Pneumonia Priority: Secondary Status: Ruled-out Comments: Patient was initially felt to have pneumonia, secondary to post viral syndrome. Chest x-ray was negative, blood cultures were negative 2 sets, slight white count elevation could be attributed to the sinusitis as well as steroid use. She will continue Levaquin for the treatment of acute sinusitis she is not septic. She did receive IV fluid bolus in the ER and her lactate normalized. Her cough is nonproductive Qualifiers: Pneumonia type: due to influenza A virus Laterality: left Lung location: lower lobe of lung Qualified Code(s): J11.00 - Influenza due to unidentified influenza virus with unspecified type of pneumonia Hospital course: Ms. Goddard is a 72 year old female who was recently hospitalized at [facility] in [place] for behavior medication adjustments where she came down with flu A. She then went to [facility] in [place] for influenza complications where she had an overnight stay. She presented to this facility with persistent coughing, wheezing, shortness of breath, chest pain and subjective fever. History is obtained as well as the from the daughter as the patient suffers from dementia and is a poor historian. She was diagnosed with the flu about 3 weeks ago at [facility]. She had similar symptoms at [place] and was sent home. She states she was never diagnosed with pneumonia however her asthma has been more difficult to control. During her stay here the cough was very difficult to control on a good regime of management. Pulmonary was consulted and felt the acute asthmatic exacerbation was due to untreated chronic sinusitis and post viral cough syndrome. It was recommended she be discharged on some hydrocodone that she has anaphylaxis to codeine so that was not started. She will be discharged on a prolonged prednisone taper of 3 weeks, albuterol nebulizer, Symbicort 3 times a day, and a 14 day course of Levaquin. She will need to complete 12 doses by mouth 500 mg secondary to her creatinine clearance. Will follow-up with pulmonary in 6-8 weeks in the clinic. She should follow-up with her primary care physician next week. The daughter is concerned about her sleeping habits and some behavior changes. Recommend outpatient follow-up with her psychiatrist or behavioral management clinic. utility worker and showcase maker spoke with the family about placement. They offered to help fill out a Medicaid application. The family declined and will take her home. Discharge discussed with: patient, family, nurse, social work, residential sales consultant - Time Spent with Patient Total time spent providing and/or coordinating discharge services: Less than 30 minutes - Discharge Medications Prescriptions: GuaiFENesin/Dextromethorphan [Robitussin/Dm] 10 ml PO Q6HR PRN 10 Days #1 bottle PRN Reason: Cough Albuterol Neb [Proventil Neb] 2.5 mg IH Q6H PRN 30 Days #120 inhsol PRN Reason: Wheezing Levofloxacin [Levaquin] 500 mg PO DAILY #12 tablet predniSONE [PredniSONE] 10 mg PO DAILY 12 Days #40 tablet Home Medications: Aspirin [Adult Low Dose Aspirin EC] 81 mg PO DAILY 10/12/15 [History] Albuterol Sulfate [Proair Hfa] 2 puff IH Q4H PRN 02/28/17 [History] Omeprazole [PriLOSEC] 40 mg PO DAILY 02/28/17 [History] Acetaminophen [Tylenol Arthritis] 650 mg PO QAM AND QHS 07/23/17 [History] Ibuprofen [Motrin] 800 mg PO Q8HR 07/23/17 [History] LORazepam [Ativan] 0.5 mg PO BID 07/23/17 [History] Nitroglycerin [Nitrostat] 0.4 mg SL Q5M PRN 07/23/17 [History] Lactobacillus Acidophilus [Probiotic Acidophilus] 1 each PO DAILY #7 tablet 03/01 [Rx] Quetiapine Fumarate [Seroquel] 12.5 mg PO BID 11/14/17 [History] Benzonatate [Tessalon] 100 mg PO TID PRN 12/05/17 [History] Dextran 70/Hypromellose [Natural Balance Tears Eye Drop] 15 ml OP DAILY [History] Divalproex Sodium [Depakote Sprinkle] 250 mg PO TID 12/05/17 [History] Docusate [Colace] 100 mg PO DAILY 12/05/17 [History] GuaiFENesin Liq [Robitussin Liq] 200 mg PO Q6HR 12/05/17 [History] Ipratropium/Albuterol Neb [Duoneb] 3 ml IH Q6HR 12/05/17 [History] Promethazine [Phenergan] 25 mg PO Q8HR 12/05/17 [History] Quetiapine Fumarate [Seroquel] 100 mg PO HS 12/05/17 [History] Rivastigmine 9.5 mg TD DAILY 12/05/17 [History] Sertraline [Zoloft] 25 mg PO DAILY 12/05/17 [History] Simvastatin [Zocor] 20 mg PO HS 12/05/17 [History] Albuterol Neb [Proventil Neb] 2.5 mg IH Q6H PRN 30 Days #120 inhsol 12/08/17 [Rx ] GuaiFENesin/Dextromethorphan [Robitussin/Dm] 10 ml PO Q6HR PRN 10 Days #1 bottle 12/08/17 [Rx] Levofloxacin [Levaquin] 500 mg PO DAILY #12 tablet 12/08/17 [Rx] predniSONE [PredniSONE] 10 mg PO DAILY 12 Days #40 tablet 12/08/17 [Rx] Allergies/Adverse Reactions: 3 Allergy/AdvReac Type Severity Reaction Status Date / Time codeine Allergy Anaphylaxis Verified 11/14/17 08:48 Sulfa (Sulfonamide Allergy Hives Verified 11/14/17 08:48 Antibiotics) Date of admission: 12/04/17 23:36 Primary care physician: Flores Hernández CNP Consults: 12/05/17 01:43 Consult to Inspector Firearms [CONS] Routine Reason for SW Consult: family member reports she is unable to get any help in the home caring for her demented mother 12/07/17 14:22 Consult to Pulmonology [CONS] Routine Consulting Provider: [facility] Reason for Consult: persistent bronchospasm Time Notified: 14:23 Call Completed: Yes Discharging clinician: Yissel Muñoz Anticipated date of discharge: 12/08/17 - Constitutional Vitals: Temp Pulse Resp BP Pulse Ox 98.9 F 80 16 154/82 94 12/08/17 07:58 12/08/17 07:58 12/08/17 11:13 12/08/17 07:58 12/08/17 11:13 General appearance: Present: cooperative, A&O X 1, A&O X 2, pleasant, no acute distress. Absent: answers questions appropriately - Head Head exam: Present: atraumatic, normocephalic - Eye Eye exam: Present: PERRL, conjuntiva pink, sclera anicteric Pupils: Present: PERRL - Neck Neck exam general surgery: Present: supple, trachea midline. Absent: lymphadenopathy - Respiratory Respiratory exam: Present: CTAB. Absent: accessory muscle use, rales, rhonchi, wheezes - Cardiovascular Cardiovascular exam: Present: RRR, +S1, +S2. Absent: diastolic murmur, gallop, rubs, systolic murmur - GI/Abdominal GI/Abdominal exam: Present: normal bowel sounds, soft, no peritoneal signs. Absent: distended, tenderness - Extremities Exam Extremities exam: Present: warm, radial pulses palpable and symmetrical. Absent : calf tenderness, cyanotic, pedal edema - Neurological Exam Neurological exam: Present: alert, CN II-XII intact, normal gait, no focal deficits, strengths equal and symetr throughout. Absent: pronater drift, facial droop, speech deficit - Skin Skin exam: Present: dry, intact, warm - Patient Status Disposition: Home, Self-Care Condition: Fair Overall status at discharge: patient is progressing back to baseline - Discharge Instructions Follow Up With: Flores Hernández CNP [Primary Care Provider] - 12/12/17 1:00 pm - Diet and Activity Activity: increase activity as tolerated Diet: advance to your usual diet
[2017-12-08 11:58] VITALS: BP 149/73
[2017-12-08] MEDS ORDERED: HYDROcodone BIT/Homatropine LQ 5 MG/5 ML UDC PO PRN (11:59)
--- NOTE | 2017-12-08 12:00 | Pulmonology Progress Note ---
Date of Encounter: 12/08/17 Time of Encounter: 11:30 Assessment and Plan (1) Acute asthma exacerbation Status: Acute To send home steroid taper 3 week . With Albuterol nebulizer and Symbicort Qualifiers: Asthma severity: moderate Asthma persistence: persistent Qualified Code(s ): J45.41 - Moderate persistent asthma with (acute) exacerbation (2) Chronic sinusitis Status: Acute Patient has chronic post nasal drip will treat with 14 days of Levofloxacin Qualifiers: Sinusitis location: maxillary Qualified Code(s): J32.0 - Chronic maxillary sinusitis (3) Post-viral cough syndrome Status: Acute Will eventually settle down 3-4 weeks will follow in Pulmonary Clinic 6 weeks Subjective Principal diagnosis: Asthma Exacerbation Interval history: Patient is lying in bed no distress doesnt complain of much cough nor wheezing patient is getting discharged Objective PUL Vital signs: Last Vital Signs Temp 98.7 F 12/08/17 11:51 Pulse 90 12/08/17 11:51 Resp 16 12/08/17 11:51 BP 149/73 12/08/17 11:51 Pulse Ox 95 12/08/17 11:51 Auscultation: bilateral: clear Results - Laboratory Findings CBC and BMP: 12/07/17 03:26 12/07/17 03:26 PT/INR, D-dimer PT 12.3 Seconds (9.4-12.1) H 12/05/17 05:37 Abnormal lab findings: Abnormal lab results WBC 22.2 K/mcL (4.3-11.1) H D 12/07/17 03:26 Hgb 10.7 g/dL (11.5-15.4) L 12/07/17 03:26 Hct 32.0 % (35.3-44.9) L 12/07/17 03:26 MCV 78.8 fL (83.0-100.0) L 12/07/17 03:26 MCH 26.4 pg (28.0-33.3) L 12/07/17 03:26 Plt Count 415 K/mcL (140-400) H 12/07/17 03:26 Immature Gran % 9.5 % (0-4) H 12/06/17 04:14 Neutrophils # 9.4 K/mcL (1.6-8.9) H 12/06/17 04:14 Reactive Lymphocytes Present (Not Present) A 12/05/17 05:37 PT 12.3 Seconds (9.4-12.1) H 12/05/17 05:37 APTT 20.1 Seconds (26.0-36.0) L 12/05/17 05:37 Carbon Dioxide 22 mEq/L (23-29) L 12/07/17 03:26 BUN 24 mg/dL (8-23) H 12/07/17 03:26 BUN/Creatinine Ratio 28 (6-26) H 12/07/17 03:26 Glucose 142 mg/dL (70-105) H 12/07/17 03:26 POC Glucose 169 (58-89) H 12/07/17 20:42 B-Natriuretic Peptide 190 pg/mL (Less than 100) H 12/04/17 21:32 Albumin 3.3 g/dL (3.5-5.7) L 12/05/17 05:37 Ur Squamous Epith Cells Many per lpf (None-Few) H 12/04/17 22:45 - Microbiology Findings Microbiology Findings: Microbiology, Last 48 Hours 12/05/17 11:50 Streptococcus pneumoniae Antigen (M - Final Urine,Random-Not Preferred 12/05/17 06:00 Urine Culture - Final Urine,Catheterized No growth. - Clinical Findings Intake & Output: Intake & Output 12/07/17 12/08/17 12/08/17 23:59 07:59 15:59 Weight 84.822 kg Consult Discharge Plan - Plan Instructions: Albuterol (By breathing), Prednisone (By mouth), Levofloxacin ( By mouth), Dextromethorphan/Guaifenesin/Phenylephrine (By mouth) Referrals: Flores Hernández CNP [Primary Care Provider] - 12/12/17 1:00 pm Vickie Rico MD [Partnered Physician] - (Call office to schedule follow up appointment in 6-8 weeks (Your appointment has been webrequested. Our offices will call you with an appointment time and date.)) Prescriptions: GuaiFENesin/Dextromethorphan [Robitussin/Dm] 10 ml PO Q6HR PRN 10 Days #1 bottle PRN Reason: Cough Albuterol Neb [Proventil Neb] 2.5 mg IH Q6H PRN 30 Days #120 inhsol PRN Reason: Wheezing Levofloxacin [Levaquin] 500 mg PO DAILY #12 tablet predniSONE [PredniSONE] 10 mg PO DAILY 12 Days #40 tablet
[2017-12-10 08:59] LABS: Mycoplasma pneumoniae IgG 0.37 U/L (<=0.09)
== END 2017-12-08 16:15 | disposition home or self-care (01) | DRG 202 ==
LOC: EMEROO 20:30 → 3BNU 20:30
PROVIDERS: ADMIT Internal Medicine; ATTEND Registered Nurse

== ENCOUNTER 2020-10-20 22:46 | Inpatient (IN) ==
[2020-10-21 00:10] LABS: Basophils # 0.1 K/mcL (0.0-0.2); Basophils % 0.5 %; Eosinophils # 0.2 K/mcL (0.0-0.6); Eosinophils % 1.4 %; Hematocrit 36.8 % (35.3-44.9); Hemoglobin 10.7 g/dL (11.5-15.4); Immature Granulocytes % 0.4 % (0-4); Lymphocytes # 2.3 K/mcL (0.6-4.6); Lymphocytes % 18.3 %; Mean Corpuscular HGB Conc 29.1 g/dL (31.6-35.5); Mean Corpuscular Hemoglobin 20.3 pg (28.0-33.3); Mean Corpuscular Volume 69.7 fL (83.0-100.0); Monocytes % 7.8 %; Neutrophils # 9.1 K/mcL (1.6-8.9); Platelet Count 334 K/mcL (140-400); Red Blood Count 5.28 M/mcL (3.82-4.97); Red Cell Distribution Width 16.8 % (11.5-14.5); Segmented Neutrophils % 71.6 %; White Blood Count 12.7 K/mcL (4.3-11.1)
[2020-10-21 00:13] LABS: INR 1.6; Prothrombin Time 17.8 Seconds (9.4-12.1)
[2020-10-21 00:28] LABS: Bilirubin,Urine Negative (Negative); Blood,Urine Negative (Negative); Clarity,Urine Clear (Clear); Color,Urine Light-Yellow (Yellow); Glucose,Urine (UA) Normal (Normal); Ketones,Urine Negative (Negative); Leukocyte Esterase,Urine Negative (Negative); Nitrite,Urine Negative (Negative); PH,Urine 5.5 pH Units (5.0-8.0); Protein,Urine Negative (Neg-Trace); Specific Gravity,Urine 1.023 (1.010-1.025); Urobilinogen,Urine Normal (Normal)
[2020-10-21 00:32] LABS: Alanine Aminotransferase 10 Units/L (7-52); Albumin 4.1 g/dL (3.5-5.7); Albumin/Globulin Ratio 1.4 (1.1-2.2); Alkaline Phosphatase 79 Units/L (34-104); Aspartate Amino Transferase 13 Units/L (13-39); BUN/Creatinine Ratio 26 (6-26); Bilirubin,Total 0.4 mg/dL (0.3-1.0); Blood Urea Nitrogen 27 mg/dL (8-23); Carbon Dioxide 24 mEq/L (23-29); Chloride 106 mEq/L (98-107); Glucose 114 mg/dL (70-105); Osmolality,Calculated 296 (280-300); Potassium 3.8 mEq/L (3.5-5.1); Sodium 140 mEq/L (136-145); Total Protein 7.1 g/dL (6.4-8.9); Troponin I < 0.03 ng/mL (< 0.04); eGFR For African Americans > 60 (> 60); eGFR For Non-African Americans 51 (> 60)
[2020-10-21 00:42] LABS: Anisocytosis 1+ (Not Present); Microcytosis Present (Not Present); Platelet Estimate Normal (Normal)
[2020-10-21] MEDS ORDERED: 0.9 % Sodium Chloride 1,000 ML IV ONE (01:18)
[2020-10-21] MEDS ORDERED: Naloxone 0.4 MG/ML INJ IVP PRN (03:13)
[2020-10-21] MEDS ORDERED: Ondansetron ODT 4 MG TAB.RAPDIS SL PRN (03:18)
[2020-10-21] MEDS ORDERED: Perflutren Lipid Microsphere 1.3 ML in 0.9 % Sodium Chloride 8.7 ML IVP PRN (05:21)
[2020-10-21] MEDS ORDERED: *HR* Rivaroxaban 10 MG TABLET PO SCH (06:00)
[2020-10-21] MEDS: risperiDONE 1 MG TABLET PO SCH ×2 (06:24→17:08)
[2020-10-21] MEDS: 0.9 % Sodium Chloride 1,000 ML IVC SCH ×2 (06:29→16:29)
[2020-10-21] MEDS: *HR* Rivaroxaban 10 MG TABLET PO SCH (19:29)
[2020-10-21] MEDS: Famotidine 20 MG TABLET PO SCH (19:29)
[2020-10-21] MEDS ORDERED: Acetaminophen 325 MG TABLET PO PRN (20:35)
[2020-10-21] MEDS ORDERED: Melatonin 3 MG TABLET PO PRN (20:35)
[2020-10-21] MEDS ORDERED: Famotidine 20 MG TABLET PO SCH (21:00)
[2020-10-22] MEDS: risperiDONE 1 MG TABLET PO SCH ×2 (05:24→18:53)
[2020-10-22] MEDS: 0.9 % Sodium Chloride 1,000 ML IVC SCH ×2 (05:29→16:01)
[2020-10-22] MEDS: *HR* Rivaroxaban 10 MG TABLET PO SCH ×2 (08:11→20:09)
[2020-10-22 08:12] LABS: Basophils # 0.1 K/mcL (0.0-0.2); Basophils % 0.4 %; Eosinophils # 0.2 K/mcL (0.0-0.6); Eosinophils % 1.6 %; Hematocrit 35.6 % (35.3-44.9); Hemoglobin 10.6 g/dL (11.5-15.4); Immature Granulocytes % 0.4 % (0-4); Lymphocytes # 2.3 K/mcL (0.6-4.6); Lymphocytes % 18.9 %; Mean Corpuscular HGB Conc 29.8 g/dL (31.6-35.5); Mean Corpuscular Hemoglobin 20.7 pg (28.0-33.3); Mean Corpuscular Volume 69.5 fL (83.0-100.0); Mean Platelet Volume 9.8 fL (9.4-12.4); Monocytes # 0.9 K/mcL (0.0-1.3); Neutrophils # 8.8 K/mcL (1.6-8.9); Platelet Count 325 K/mcL (140-400); Red Blood Count 5.12 M/mcL (3.82-4.97); Red Cell Distribution Width 16.9 % (11.5-14.5); Segmented Neutrophils % 71.7 %; White Blood Count 12.2 K/mcL (4.3-11.1)
[2020-10-22 08:26] LABS: BUN/Creatinine Ratio 20 (6-26); Blood Urea Nitrogen 18 mg/dL (8-23); Calcium 8.9 mg/dL (8.6-10.3); Carbon Dioxide 23 mEq/L (23-29); Chloride 108 mEq/L (98-107); Glucose 111 mg/dL (70-105); Osmolality,Calculated 291 (280-300); Sodium 139 mEq/L (136-145); eGFR For African Americans > 60 (> 60); eGFR For Non-African Americans 60 (> 60)
[2020-10-22 08:47] LABS: Platelet Estimate Normal (Normal)
[2020-10-22 08:48] LABS: Microcytosis Present (Not Present)
[2020-10-22] MEDS: Famotidine 20 MG TABLET PO SCH (20:10)
[2020-10-23] MEDS: risperiDONE 1 MG TABLET PO SCH ×2 (05:35→18:24)
[2020-10-23] MEDS: *HR* Rivaroxaban 10 MG TABLET PO SCH ×2 (08:41→19:43)
[2020-10-23] MEDS: Famotidine 20 MG TABLET PO SCH (19:43)
[2020-10-24] MEDS: amLODIPine 5 MG TABLET PO SCH (05:31)
[2020-10-24] MEDS: risperiDONE 1 MG TABLET PO SCH ×2 (05:32→18:53)
[2020-10-24 07:10] LABS: Adenovirus F 40/41 PCR Not detected (Not detect); Astrovirus PCR Not detected (Not detect); C.difficile Toxin A/B Gene PCR Not detected (Not detect); Campylobacter by PCR Not detected (Not detect); Cryptosporidium by PCR Not detected (Not detect); Cyclospora cayetanensis PCR Not detected (Not detect); E. coli O157 by PCR Not detected (Not detect); Entamoeba histolytica PCR Not detected (Not detect); Enteroaggregative E.coli(EAEC) Not detected (Not detect); Enteropathogenic E.coli(EPEC) Not detected (Not detect); Enterotoxigenic E.coli (ETEC) Not detected (Not detect); Giardia lamblia PCR Not detected (Not detect); Norovirus GI/GII PCR Not detected (Not detect); Plesiomonas shigelloides PCR Not detected (Not detect); Rotavirus A PCR Not detected (Not detect); Salmonella PCR Not detected (Not detect); Sapovirus PCR Not detected (Not detect); Shig/EnteroinvasiveE coli EIEC Not detected (Not detect); Shigalike tox-prod E coli STEC Not detected (Not detect); Vibrio PCR Not detected (Not detect); Vibrio cholerae PCR Not detected (Not detect); Yersinia enterocolitica PCR Not detected (Not detect)
[2020-10-24] MEDS: *HR* Rivaroxaban 10 MG TABLET PO SCH ×2 (09:28→22:10)
[2020-10-24] MEDS: Famotidine 20 MG TABLET PO SCH (22:10)
[2020-10-25] MEDS: amLODIPine 5 MG TABLET PO SCH (05:42)
[2020-10-25] MEDS: risperiDONE 1 MG TABLET PO SCH (05:42)
[2020-10-25] MEDS: *HR* Rivaroxaban 10 MG TABLET PO SCH (10:06)
[2020-10-25 11:42] VITALS: BP 118/73
== END 2020-10-25 15:55 | DRG 605 ==
LOC: 3NENU 22:46 → EMEROOARM 22:46 → SUATTDRO 10-21 03:06 → 3NENU 10-21 04:05
PROVIDERS: ADMIT Internal Medicine; ATTEND Internal Medicine

== ENCOUNTER 2020-12-09 15:26 | Inpatient (IN) ==
[2020-12-09] MEDS ORDERED: Isovue-370 500 ML BOTTLE IVP ONE (16:15)
[2020-12-09 17:15] LABS: Basophils # 0.1 K/mcL (0.0-0.2); Basophils % 0.5 %; Eosinophils # 0.3 K/mcL (0.0-0.6); Eosinophils % 2.1 %; Hematocrit 34.1 % (35.3-44.9); Hemoglobin 9.9 g/dL (11.5-15.4); Immature Granulocytes % 0.5 % (0-4); Lymphocytes # 1.6 K/mcL (0.6-4.6); Lymphocytes % 12.7 %; Mean Corpuscular Hemoglobin 20.9 pg (28.0-33.3); Mean Corpuscular Volume 72.1 fL (83.0-100.0); Mean Platelet Volume 10.3 fL (9.4-12.4); Monocytes # 0.8 K/mcL (0.0-1.3); Monocytes % 6.5 %; Platelet Count 341 K/mcL (140-400); Red Blood Count 4.73 M/mcL (3.82-4.97); Red Cell Distribution Width 20.2 % (11.5-14.5); Segmented Neutrophils % 77.7 %; White Blood Count 12.8 K/mcL (4.3-11.1)
[2020-12-09] MEDS ORDERED: 0.9 % Sodium Chloride 1,000 ML IVC ONE (17:32)
[2020-12-09 17:40] LABS: Calcium 9.5 mg/dL (8.6-10.3); Potassium 4.8 mEq/L (3.5-5.1)
[2020-12-09] MEDS ORDERED: Ziprasidone 10 MG in Water for inj. (sterile) 0.5 ML IM STA (18:53)
[2020-12-09] MEDS ORDERED: Ziprasidone 20 MG/VIAL VIAL IM ONE (18:55)
[2020-12-09] MEDS ORDERED: cefTRIAXone 1,000 MG in Water for inj. (sterile) 10 ML IVP ONE (19:33)
[2020-12-09 20:42] LABS: Bacteria,Urine Few per hpf (None-Few); Bilirubin,Urine Negative (Negative); Blood,Urine Small (Negative); Clarity,Urine Clear (Clear); Color,Urine Colorless (Yellow); Glucose,Urine (UA) Normal (Normal); Ketones,Urine Negative (Negative); Leukocyte Esterase,Urine Large (Negative); Nitrite,Urine Negative (Negative); Protein,Urine Negative (Neg-Trace); RBC,Urine 15-30 per hpf (0-3); Specific Gravity,Urine > 1.030 (1.010-1.025); Squamous Epithelial Cell,Urine Few per hpf (None-Few); Urobilinogen,Urine Normal (Normal)
[2020-12-09] MEDS ORDERED: Naloxone 0.4 MG/ML INJ IVP PRN ×2 (22:45→22:46)
[2020-12-09] MEDS ORDERED: Ondansetron 4 MG/2 ML VIAL IVP PRN (22:46)
[2020-12-09] MEDS ORDERED: Melatonin 3 MG TABLET PO PRN (22:46)
[2020-12-09] MEDS ORDERED: Acetaminophen 325 MG TABLET PO PRN (22:46)
[2020-12-09] MEDS ORDERED: *HR* Promethazine 25 MG/ML VIAL IM PRN (22:46)
[2020-12-09] MEDS ORDERED: *HR* Dextrose 50 % in Water (Vial) 50 ML VIAL IVP PRN (22:51)
[2020-12-09] MEDS ORDERED: Dextrose Gel 15 GM/37.5 ML TUBE PO PRN ×2 (22:51)
[2020-12-09] MEDS ORDERED: D5% in Water 1,000 ML IVC PRN (22:51)
[2020-12-10] MEDS: Insulin LISPRO 300 UNITS/3 ML VIAL SUBQ SCH ×2 (00:27→05:36)
[2020-12-10] MEDS: Ringers Solution, Lactated 1,000 ML IVC SCH ×2 (02:16→07:44)
[2020-12-10 05:45] LABS: Basophils # 0.1 K/mcL (0.0-0.2); Basophils % 0.6 %; Eosinophils # 0.4 K/mcL (0.0-0.6); Eosinophils % 3.3 %; Hematocrit 34.3 % (35.3-44.9); Hemoglobin 9.6 g/dL (11.5-15.4); Immature Granulocytes % 0.5 % (0-4); Lymphocytes # 2.2 K/mcL (0.6-4.6); Lymphocytes % 20.6 %; Mean Corpuscular Hemoglobin 20.3 pg (28.0-33.3); Mean Corpuscular Volume 72.7 fL (83.0-100.0); Mean Platelet Volume 10.1 fL (9.4-12.4); Monocytes # 0.8 K/mcL (0.0-1.3); Monocytes % 7.7 %; Neutrophils # 7.3 K/mcL (1.6-8.9); Nucleated Red Blood Cells 0.3 /100 WBC (0); Platelet Count 223 K/mcL (140-400); Red Blood Count 4.72 M/mcL (3.82-4.97); Red Cell Distribution Width 20.3 % (11.5-14.5); Segmented Neutrophils % 67.3 %; White Blood Count 10.8 K/mcL (4.3-11.1)
[2020-12-10 06:05] LABS: BUN/Creatinine Ratio 14 (6-26); Blood Urea Nitrogen 13 mg/dL (8-23); Carbon Dioxide 21 mEq/L (23-29); Chloride 106 mEq/L (98-107); Glucose 114 mg/dL (70-105); Magnesium 1.7 mg/dL (1.6-2.6); Osmolality,Calculated 289 (280-300); Potassium 3.7 mEq/L (3.5-5.1); Sodium 139 mEq/L (136-145); eGFR For African Americans > 60 (> 60); eGFR For Non-African Americans 56 (> 60)
[2020-12-10 06:19] LABS: Anisocytosis 1+ (Not Present); Hypochromasia Present (Not Present); Platelet Estimate Normal (Normal); Poikilocytosis 1+ (Not Present)
[2020-12-10] MEDS: risperiDONE 1 MG TABLET PO SCH ×2 (07:40→19:53)
[2020-12-10] MEDS: amLODIPine 5 MG TABLET PO SCH (07:40)
[2020-12-10] MEDS: cefTRIAXone 1,000 MG in Water for inj. (sterile) 10 ML IVP SCH (07:41)
[2020-12-10] MEDS ORDERED: Haloperidol Lactate 5 MG/ML VIAL IM ONE ×2 (13:40→18:22)
[2020-12-10] MEDS: *HR* Heparin 5,000 UNIT/ML VIAL SQ SCH (18:02)
[2020-12-10] MEDS: Famotidine 20 MG TABLET PO SCH (19:53)
[2020-12-10] MEDS: QUEtiapine Fumarate 25 MG TABLET PO SCH (19:53)
[2020-12-11] MEDS: *HR* Heparin 5,000 UNIT/ML VIAL SQ SCH ×2 (05:35→17:57)
[2020-12-11] MEDS: cefTRIAXone 1,000 MG in Water for inj. (sterile) 10 ML IVP SCH (08:07)
[2020-12-11] MEDS: risperiDONE 1 MG TABLET PO SCH ×2 (08:08→19:29)
[2020-12-11] MEDS: amLODIPine 5 MG TABLET PO SCH (08:09)
[2020-12-11] MEDS: Famotidine 20 MG TABLET PO SCH (19:29)
[2020-12-11] MEDS: QUEtiapine Fumarate 25 MG TABLET PO SCH (19:29)
[2020-12-12 06:09] LABS: Basophils % 0.4 %; Eosinophils # 0.4 K/mcL (0.0-0.6); Eosinophils % 3.7 %; Hematocrit 33.8 % (35.3-44.9); Hemoglobin 9.9 g/dL (11.5-15.4); Immature Granulocytes % 0.6 % (0-4); Lymphocytes # 2.4 K/mcL (0.6-4.6); Lymphocytes % 23.7 %; Mean Corpuscular HGB Conc 29.3 g/dL (31.6-35.5); Mean Corpuscular Hemoglobin 20.8 pg (28.0-33.3); Mean Corpuscular Volume 71.2 fL (83.0-100.0); Mean Platelet Volume 9.4 fL (9.4-12.4); Monocytes # 0.8 K/mcL (0.0-1.3); Monocytes % 8.2 %; Neutrophils # 6.4 K/mcL (1.6-8.9); Platelet Count 295 K/mcL (140-400); Red Blood Count 4.75 M/mcL (3.82-4.97); Red Cell Distribution Width 20.2 % (11.5-14.5); Segmented Neutrophils % 63.4 %; White Blood Count 10.1 K/mcL (4.3-11.1)
[2020-12-12] MEDS: *HR* Heparin 5,000 UNIT/ML VIAL SQ SCH (06:25)
[2020-12-12 06:32] LABS: BUN/Creatinine Ratio 15 (6-26); Blood Urea Nitrogen 15 mg/dL (8-23); Calcium 8.9 mg/dL (8.6-10.3); Carbon Dioxide 26 mEq/L (23-29); Chloride 106 mEq/L (98-107); Glucose 115 mg/dL (70-105); Osmolality,Calculated 294 (280-300); Potassium 3.7 mEq/L (3.5-5.1); Sodium 141 mEq/L (136-145); eGFR For African Americans > 60 (> 60); eGFR For Non-African Americans 56 (> 60)
[2020-12-12] MEDS ORDERED: Fluconazole 100 MG TABLET PO SCH (09:00)
[2020-12-12] MEDS: risperiDONE 1 MG TABLET PO SCH (09:10)
[2020-12-12] MEDS: amLODIPine 5 MG TABLET PO SCH (09:10)
[2020-12-12] MEDS: cefTRIAXone 1,000 MG in Water for inj. (sterile) 10 ML IVP SCH ×2 (09:11→10:13)
[2020-12-12 11:40] VITALS: BP 124/76
== END 2020-12-12 12:49 | disposition home health service (06) | DRG 698 ==
LOC: EMEROOARM 15:26 → 3BNU 15:26 → SUATTDRO 21:50 → 3BNU 22:45 → SUATTDRO 12-10 10:09
PROVIDERS: ADMIT Internal Medicine; ATTEND Family Medicine